=== PATIENT | male | born 1945 | race Caucasian/White ===

== ENCOUNTER 2020-06-24 06:09 | Inpatient (IN) | payer OTHER ==
[~2020-06-24] VITALS: Ht 175.3 cm; Wt 101.0 kg
[~2020-06-24 06:09] MED LIST: ASPI-543 PO
[2020-06-24] MEDS ORDERED: SODIUM CHLORIDE 0.9% 1,000 ML IV ONE ×2 (07:33)
[2020-06-24] MEDS ORDERED: cefTRIAXone 1GM/50ML D5W 50 ML IV ONE (07:45)
[2020-06-24] MEDS ORDERED: IPRATROPIUM BROM 0.5 MG/2.5ML INH SOL NEB ONE (07:45)
[2020-06-24] MEDS ORDERED: ALBUTEROL SULF 2.5 MG/0.5ML(0.5%) NEB SOLN NEB ONE (07:45)
[2020-06-24] MEDS ORDERED: methylPREDNISolone SOD SUCC 125 MG/2 ML VL IV ONE (07:45)
[2020-06-24] MEDS ORDERED: MAGNESIUM SULFATE 1GM/100ML 100 ML IV ONE (07:45)
[2020-06-24] MEDS ORDERED: DOXYCYCLINE 100MG/250ML 250 ML IV ONE (08:15)
[2020-06-24 09:00] LABS: Basophils # (auto) 0 10 ^3/uL (0-0.2); Basophils % (auto) 0.3 % (0.0-2.0); Eosinophils # (auto) 0 10 ^3/uL (0-0.8); Hematocrit 40.7 % (41.0-53.0); Hemoglobin 13.8 g/dL (13.5-17.5); Lymphocytes # (auto) 0.6 10 ^3/uL (0.4-5.4); Lymphocytes % (auto) 11.6 % (10.0-50.0); Mean Corpuscular Hemoglobin 31.9 pg (28.0-32.0); Mean Corpuscular Hgb Conc. 33.8 g/dL (32.0-36.0); Mean Corpuscular Volume 94.4 fL (80.0-100.0); Monocytes # (auto) 0.3 10 ^3/uL (0-1.3); Neutrophils # (auto) 4.4 10 ^3/uL (1.6-8.6); Neutrophils % (auto) 82.1 % (37.0-80.0); Nucleated Red Blood Cells % 0.3 %; Platelet Count (auto) 114 10^3/uL (140-450); Red Blood Cells 4.31 10^6/uL (4.5-5.90); Red Cell Distribution Width 13.9 % (11.8-14.3); White Blood Cell 5.3 10^3/uL (4.4-10.8)
[2020-06-24 09:07] LABS: INR 1.04 (0.9-1.15); Partial Thromboplastin Time 30.2 sec (23.0-31.2)
[2020-06-24 09:12] LABS: Chloride 102 mmol/L (98-107); Sodium 132 mmol/L (136-145)
[2020-06-24 09:24] LABS: Alanine Aminotransferase 28 U/L (16-61); Albumin 3.1 g/dL (3.4-5.0); Alkaline Phosphatase 93 U/L (45-117); Anion Gap 9 (5-15); Aspartate Aminotransferase 58 U/L (15-37); BUN/Creatinine Ratio 17.2; Blood Urea Nitrogen 15 mg/dL (7-18); Calcium 8.2 mg/dL (8.5-10.1); Carbon Dioxide 21 mmol/L (21-32); GFR African American 111 mL/min; GFR Non-African American 91 mL/min; Glucose 105 mg/dL (74-106); Total Protein 7.2 g/dL (6.4-8.2)
[2020-06-24 11:32] LABS: Urine Bacteria NONE SEEN /hpf (None Seen); Urine Blood Negative /uL (Negative); Urine Specific Gravity 1.018 (1.001-1.035); Urine WBC 3 /hpf (0 - 3)
[2020-06-24] MEDS ORDERED: MORPHINE SULF INJ 2 MG/ML SYRINGE 1ML IV PRN (13:00)
[2020-06-24] MEDS ORDERED: NITROGLYCERIN 0.4 MG SL TAB SL PRN (13:00)
[2020-06-24] MEDS ORDERED: SUCCINYLCHOLINE CHLORIDE 20 MG/ML 10ML VIAL IV ONE ×2 (13:49→14:00)
[2020-06-24] MEDS ORDERED: ETOMIDATE (2MG/ML) 20ML VIAL IV ONE ×2 (13:49→14:00)
[2020-06-24] MEDS ORDERED: MIDAZOLAM DRIP 50 mg/50mL 50 ML IV ONE (13:50)
[2020-06-24] MEDS: MIDAZOLAM DRIP 50 mg/50mL 50 ML IV SCH ×3 (14:08→22:40)
[2020-06-24] MEDS ORDERED: MIDAZOLAM HCL 5 MG/ML-1ML VIAL ONE (14:11)
[2020-06-24] MEDS ORDERED: PROPOFOL 100 ML IV ONE (14:17)
[2020-06-24] MEDS: PROPOFOL 100 ML IV SCH ×2 (14:19→21:30)
[2020-06-24] MEDS: fentaNYL Drip 2500mCg/250mlNS 250 ML IV SCH (14:25)
[2020-06-24] MEDS ORDERED: fentaNYL Drip 2500mCg/250mlNS 250 ML IV ONE (14:38)
[2020-06-24] MEDS: D5W/SOD CHL 0.45% 1,000 ML IV SCH ×2 (15:14→23:33)
[2020-06-24] MEDS: ALBUTEROL SULF HFA 90MCG INH 200DOSE IN SCH ×2 (15:16→18:00)
[2020-06-24] MEDS ORDERED: fentaNYL Drip 2500mCg/250mlNS 250 ML IV SCH (15:20)
[2020-06-24 18:32] VITALS: BP 89/56
[2020-06-24 19:32] VITALS: BP 89/56
[2020-06-24 19:50] VITALS: BP 89/56
[2020-06-24 22:32] VITALS: BP 103/56
[2020-06-25] VITALS (7 sets, daily range): BP systolic 97–128; BP diastolic 46–56
[2020-06-25] MEDS: ALBUTEROL SULF HFA 90MCG INH 200DOSE IN SCH (02:15)
[2020-06-25] MEDS ORDERED: ZINC SULFATE 220mg CAP or TAB PO SCH (10:00)
[2020-06-25] MEDS ORDERED: methylPREDNISolone SOD SUCC 125 MG/2 ML VL IV SCH (10:00)
[2020-06-25] MEDS ORDERED: AZITHROMYCIN 250 MG TAB PO SCH (10:00)
[2020-06-25] MEDS: cefTRIAXone 1GM/50ML D5W 50 ML IV SCH (10:10)
[2020-06-25] MEDS: PROPOFOL 100 ML IV SCH ×2 (10:12→14:58)
[2020-06-25] MEDS: MIDAZOLAM DRIP 50 mg/50mL 50 ML IV SCH (10:13)
[2020-06-25] MEDS ORDERED: NOREPINEPHRINE 8 MG/250ML KIT 250 ML IV ONE (11:21)
[2020-06-25] MEDS: NOREPINEPHRINE 8 MG/250ML KIT 250 ML IV SCH (12:03)
[2020-06-25] MEDS ORDERED: VANCOMYCIN PER PHARMACY 0 MG IV SCH (12:45)
[2020-06-25] MEDS: VANCOMYCIN 1GM/250ML 250 ML IV SCH (13:53)
[2020-06-25] MEDS ORDERED: SODIUM BICARBONATE 8.4 % INJ 50ML VIAL IV ONE (14:00)
[2020-06-25] MEDS: fentaNYL Drip 2500mCg/250mlNS 250 ML IV SCH (14:38)
[2020-06-25] MEDS: ENOXAPARIN SOD 120 MG/0.8 ML SYRINGE SC SCH ×2 (14:57→22:48)
[2020-06-25] MEDS: D5W/SOD CHL 0.45% 1,000 ML IV SCH ×2 (15:00→19:35)
[2020-06-26] VITALS (69 sets, daily range): BP systolic 86–156; BP diastolic 39–59
[2020-06-26] MEDS: VANCOMYCIN 1GM/250ML 250 ML IV SCH ×2 (02:23→14:14)
[2020-06-26] MEDS: PROPOFOL 100 ML IV SCH ×3 (03:50→17:26)
[2020-06-26] MEDS: MIDAZOLAM DRIP 50 mg/50mL 50 ML IV SCH ×3 (03:50→17:26)
[2020-06-26] MEDS: D5W/SOD CHL 0.45% 1,000 ML IV SCH ×2 (05:20→15:15)
[2020-06-26 05:32] LABS: Basophils # (auto) 0 10 ^3/uL (0-0.2); Basophils % (auto) 0.1 % (0.0-2.0); Eosinophils # (auto) 0 10 ^3/uL (0-0.8); Hematocrit 38.4 % (41.0-53.0); Hemoglobin 13.1 g/dL (13.5-17.5); Lymphocytes # (auto) 0.4 10 ^3/uL (0.4-5.4); Lymphocytes % (auto) 2.1 % (10.0-50.0); Mean Corpuscular Hemoglobin 32.5 pg (28.0-32.0); Mean Corpuscular Hgb Conc. 34.1 g/dL (32.0-36.0); Mean Corpuscular Volume 95.2 fL (80.0-100.0); Monocytes # (auto) 0.6 10 ^3/uL (0-1.3); Monocytes % (auto) 3.4 % (0.0-12.0); Neutrophils % (auto) 94.4 % (37.0-80.0); Nucleated Red Blood Cells % 0.4 %; Platelet Count (auto) 176 10^3/uL (140-450); Red Blood Cells 4.03 10^6/uL (4.5-5.90); Red Cell Distribution Width 13.7 % (11.8-14.3)
[2020-06-26 05:53] LABS: Albumin 2.5 g/dL (3.4-5.0); Calcium 7.8 mg/dL (8.5-10.1); Potassium 4.3 mmol/L (3.5-5.1)
[2020-06-26 06:05] LABS: BUN/Creatinine Ratio 25.5; Bilirubin, Total 0.6 mg/dL (0.2-1.0); CRP High Sensitivity 5.59 mg/dL (< 0.3); Total Protein 6.6 g/dL (6.4-8.2)
[2020-06-26] MEDS ORDERED: SODIUM BICARBONATE 8.4 % INJ 50ML VIAL IV ONE (09:15)
[2020-06-26] MEDS ORDERED: ENOXAPARIN SOD 40 MG/0.4 ML SYRINGE SC SCH (10:00)
[2020-06-26] MEDS ORDERED: methylPREDNISolone SOD SUCC 125 MG/2 ML VL ONE (11:26)
[2020-06-26] MEDS: cefTRIAXone 1GM/50ML D5W 50 ML IV SCH (11:34)
[2020-06-26] MEDS: AZITHROMYCIN 500MG/ 250ML 250 ML IV SCH (11:41)
[2020-06-26] MEDS: FUROSEMIDE 20 MG/2 ML VIAL IV SCH (12:03)
[2020-06-26] MEDS: methylPREDNISolone SOD SUCC 125 MG/2 ML VL IV SCH (12:04)
[2020-06-26] MEDS: ZINC SULFATE 220mg CAP or TAB PO SCH (12:05)
[2020-06-26] MEDS: ENOXAPARIN SOD 120 MG/0.8 ML SYRINGE SC SCH ×2 (12:05→22:00)
[2020-06-26] MEDS: NOREPINEPHRINE 8 MG/250ML KIT 250 ML IV SCH (12:42)
[2020-06-26] MEDS: fentaNYL Drip 2500mCg/250mlNS 250 ML IV SCH (14:38)
[2020-06-27] VITALS (101 sets, daily range): BP systolic 93–137; BP diastolic 33–54
[2020-06-27] MEDS: D5W/SOD CHL 0.45% 1,000 ML IV SCH ×2 (01:15→11:06)
[2020-06-27] MEDS: VANCOMYCIN 1GM/250ML 250 ML IV SCH ×2 (05:00→15:10)
[2020-06-27] MEDS: PROPOFOL 100 ML IV SCH ×3 (05:18→14:51)
[2020-06-27] MEDS: MIDAZOLAM DRIP 50 mg/50mL 50 ML IV SCH ×3 (06:36→15:40)
[2020-06-27] MEDS: NOREPINEPHRINE 8 MG/250ML KIT 250 ML IV SCH (08:38)
[2020-06-27] MEDS: cefTRIAXone 1GM/50ML D5W 50 ML IV SCH (08:56)
[2020-06-27] MEDS ORDERED: REMDESIVIR 200 MG in NS 210ml LOADING DOSE ADULT IV ONE (10:00)
[2020-06-27] MEDS: ZINC SULFATE 220mg CAP or TAB PO SCH (10:39)
[2020-06-27] MEDS: FUROSEMIDE 20 MG/2 ML VIAL IV SCH (10:39)
[2020-06-27] MEDS: methylPREDNISolone SOD SUCC 125 MG/2 ML VL IV SCH (10:39)
[2020-06-27] MEDS: ENOXAPARIN SOD 120 MG/0.8 ML SYRINGE SC SCH ×2 (10:40→21:56)
[2020-06-27] MEDS: AZITHROMYCIN 500MG/ 250ML 250 ML IV SCH (11:06)
[2020-06-27 11:17] LABS: Basophils # (auto) 0 10 ^3/uL (0-0.2); Basophils % (auto) 0.3 % (0.0-2.0); Eosinophils # (auto) 0 10 ^3/uL (0-0.8); Hematocrit 37.2 % (41.0-53.0); Hemoglobin 12.2 g/dL (13.5-17.5); Lymphocytes # (auto) 0.4 10 ^3/uL (0.4-5.4); Lymphocytes % (auto) 2.9 % (10.0-50.0); Mean Corpuscular Hemoglobin 31.5 pg (28.0-32.0); Mean Corpuscular Hgb Conc. 32.9 g/dL (32.0-36.0); Mean Corpuscular Volume 95.5 fL (80.0-100.0); Monocytes # (auto) 0.4 10 ^3/uL (0-1.3); Monocytes % (auto) 2.9 % (0.0-12.0); Neutrophils # (auto) 13.2 10 ^3/uL (1.6-8.6); Neutrophils % (auto) 93.9 % (37.0-80.0); Platelet Count (auto) 157 10^3/uL (140-450); Red Blood Cells 3.89 10^6/uL (4.5-5.90); Red Cell Distribution Width 13.6 % (11.8-14.3)
[2020-06-27 11:33] LABS: Albumin 2.2 g/dL (3.4-5.0); Calcium 7.5 mg/dL (8.5-10.1); Potassium 4.7 mmol/L (3.5-5.1)
[2020-06-27 11:36] LABS: BUN/Creatinine Ratio 33.6; Bilirubin, Total 0.5 mg/dL (0.2-1.0); Total Protein 6.2 g/dL (6.4-8.2)
[2020-06-27] MEDS: fentaNYL Drip 2500mCg/250mlNS 250 ML IV SCH (12:24)
[2020-06-27] MEDS: SODIUM CHLORIDE 0.9% 1,000 ML IV SCH ×2 (15:40→23:15)
[2020-06-27] MEDS ORDERED: DEXTROSE (50%) 50ML SYRG IV PRN (17:00)
[2020-06-27] MEDS: ACCU-CHEK COMFORT CURVE STRIP VI SCH (17:32)
[2020-06-27] MEDS: InsuLIN REG 1unit/0.01ml Soln (100units/ml) SC SCH (17:46)
[2020-06-28] VITALS (101 sets, daily range): BP systolic 98–123; BP diastolic 39–53
[2020-06-28] MEDS: VANCOMYCIN 1GM/250ML 250 ML IV SCH ×2 (01:00→12:20)
[2020-06-28 05:05] LABS: Hematocrit 33.7 % (41.0-53.0); Hemoglobin 11.4 g/dL (13.5-17.5); Mean Corpuscular Hemoglobin 32.3 pg (28.0-32.0); Mean Corpuscular Hgb Conc. 33.9 g/dL (32.0-36.0); Mean Corpuscular Volume 95.3 fL (80.0-100.0); Platelet Count (auto) 169 10^3/uL (140-450); Red Blood Cells 3.54 10^6/uL (4.5-5.90); Red Cell Distribution Width 13.6 % (11.8-14.3); White Blood Cell 13.6 10^3/uL (4.4-10.8)
[2020-06-28 05:09] LABS: Basophils % (manual) 0 (0.0-2.0); Blast Cells 0; Eosinophils % (manual) 0 (0-7); Metamyelocytes % 0; Myelocytes % 0; Promyelocytes % 0; Reactive Lymphocytes 0
[2020-06-28 05:20] LABS: BUN/Creatinine Ratio 41.7; Calcium 7.4 mg/dL (8.5-10.1); Potassium 4.8 mmol/L (3.5-5.1)
[2020-06-28 05:43] LABS: Band Neutrophils % (manual) 2; Lymphocytes % (manual) 3 (10.0-50.0); Monocytes % (manual) 3 (0-12)
[2020-06-28] MEDS: InsuLIN REG 1unit/0.01ml Soln (100units/ml) SC SCH ×4 (06:00→17:55)
[2020-06-28] MEDS: ACCU-CHEK COMFORT CURVE STRIP VI SCH ×4 (06:27→17:52)
[2020-06-28] MEDS: MIDAZOLAM DRIP 50 mg/50mL 50 ML IV SCH ×3 (06:28→20:00)
[2020-06-28] MEDS: SODIUM CHLORIDE 0.9% 1,000 ML IV SCH ×3 (07:47→23:15)
[2020-06-28] MEDS: cefTRIAXone 1GM/50ML D5W 50 ML IV SCH (08:20)
[2020-06-28] MEDS: REMDESIVIR 100mg in NS 230ml DAILYx4DAYS (NO VENT) IV SCH (09:21)
[2020-06-28] MEDS: FUROSEMIDE 20 MG/2 ML VIAL IV SCH (09:38)
[2020-06-28] MEDS: ENOXAPARIN SOD 120 MG/0.8 ML SYRINGE SC SCH ×2 (09:38→22:00)
[2020-06-28] MEDS: ZINC SULFATE 220mg CAP or TAB PO SCH ×2 (09:38→10:00)
[2020-06-28] MEDS: methylPREDNISolone SOD SUCC 125 MG/2 ML VL IV SCH (09:38)
[2020-06-28] MEDS: AZITHROMYCIN 500MG/ 250ML 250 ML IV SCH (10:38)
[2020-06-28] MEDS: NOREPINEPHRINE 8 MG/250ML KIT 250 ML IV SCH (13:57)
[2020-06-28] MEDS: fentaNYL Drip 2500mCg/250mlNS 250 ML IV SCH (13:57)
[2020-06-28] MEDS: PROPOFOL 100 ML IV SCH ×2 (13:58→20:00)
[2020-06-28] MEDS: FAMOTIDINE (10MG/ML) 2ML VL IV SCH (22:16)
[2020-06-29] VITALS (100 sets, daily range): BP systolic 111–156; BP diastolic 9–70
[2020-06-29] MEDS: ACCU-CHEK COMFORT CURVE STRIP VI SCH ×4 (00:02→17:59)
[2020-06-29] MEDS: InsuLIN REG 1unit/0.01ml Soln (100units/ml) SC SCH ×4 (00:04→17:42)
[2020-06-29] MEDS: SODIUM CHLORIDE 0.9% 1,000 ML IV SCH ×2 (01:33→15:15)
[2020-06-29] MEDS: PROPOFOL 100 ML IV SCH ×4 (01:35→22:42)
[2020-06-29 05:04] LABS: Basophils # (auto) 0 10 ^3/uL (0-0.2); Eosinophils # (auto) 0 10 ^3/uL (0-0.8); Hematocrit 34.3 % (41.0-53.0); Lymphocytes # (auto) 0.3 10 ^3/uL (0.4-5.4); Lymphocytes % (auto) 2.5 % (10.0-50.0); Monocytes # (auto) 0.5 10 ^3/uL (0-1.3)
[2020-06-29 05:07] LABS: Basophils % (auto) 0.1 % (0.0-2.0); Hemoglobin 11.4 g/dL (13.5-17.5); Mean Corpuscular Hemoglobin 31.8 pg (28.0-32.0); Mean Corpuscular Hgb Conc. 33.1 g/dL (32.0-36.0); Mean Corpuscular Volume 96.1 fL (80.0-100.0); Neutrophils # (auto) 11.8 10 ^3/uL (1.6-8.6); Neutrophils % (auto) 93.4 % (37.0-80.0); Platelet Count (auto) 171 10^3/uL (140-450); Red Blood Cells 3.57 10^6/uL (4.5-5.90); Red Cell Distribution Width 13.7 % (11.8-14.3); White Blood Cell 12.6 10^3/uL (4.4-10.8)
[2020-06-29] MEDS: MIDAZOLAM DRIP 50 mg/50mL 50 ML IV SCH ×3 (05:10→22:43)
[2020-06-29 05:20] LABS: Albumin 1.9 g/dL (3.4-5.0); BUN/Creatinine Ratio 53.5; Calcium 7.6 mg/dL (8.5-10.1); Potassium 4.9 mmol/L (3.5-5.1)
[2020-06-29 05:22] LABS: Bilirubin, Total 0.6 mg/dL (0.2-1.0); Total Protein 5.8 g/dL (6.4-8.2)
[2020-06-29] MEDS: VANCOMYCIN 1GM/250ML 250 ML IV SCH ×2 (05:30→16:46)
[2020-06-29] MEDS: cefTRIAXone 1GM/50ML D5W 50 ML IV SCH (09:20)
[2020-06-29] MEDS: REMDESIVIR 100mg in NS 230ml DAILYx4DAYS (NO VENT) IV SCH (10:21)
[2020-06-29] MEDS: FUROSEMIDE 20 MG/2 ML VIAL IV SCH (10:51)
[2020-06-29] MEDS: methylPREDNISolone SOD SUCC 125 MG/2 ML VL IV SCH (10:51)
[2020-06-29] MEDS: FAMOTIDINE (10MG/ML) 2ML VL IV SCH ×2 (10:52→22:41)
[2020-06-29] MEDS: ENOXAPARIN SOD 120 MG/0.8 ML SYRINGE SC SCH ×2 (10:52→22:41)
[2020-06-29] MEDS: ZINC SULFATE 220mg CAP or TAB PO SCH (10:52)
[2020-06-29] MEDS: AZITHROMYCIN 500MG/ 250ML 250 ML IV SCH (11:59)
[2020-06-29] MEDS: NOREPINEPHRINE 8 MG/250ML KIT 250 ML IV SCH (12:42)
[2020-06-29] MEDS: fentaNYL Drip 2500mCg/250mlNS 250 ML IV SCH (14:38)
[2020-06-29] MEDS ORDERED: FUROSEMIDE 20 MG/2 ML VIAL IV ONE (22:00)
[2020-06-30] VITALS (98 sets, daily range): BP systolic 118–167; BP diastolic 46–71
[2020-06-30] MEDS: ACCU-CHEK COMFORT CURVE STRIP VI SCH ×4 (00:07→18:06)
[2020-06-30] MEDS: InsuLIN REG 1unit/0.01ml Soln (100units/ml) SC SCH ×4 (00:08→18:07)
[2020-06-30] MEDS: fentaNYL Drip 2500mCg/250mlNS 250 ML IV SCH (00:09)
[2020-06-30] MEDS: PROPOFOL 100 ML IV SCH ×4 (05:10→23:31)
[2020-06-30] MEDS: VANCOMYCIN 1GM/250ML 250 ML IV SCH ×2 (05:14→18:24)
[2020-06-30] MEDS: REMDESIVIR 100mg in NS 230ml DAILYx4DAYS (NO VENT) IV SCH (11:27)
[2020-06-30] MEDS: FAMOTIDINE (10MG/ML) 2ML VL IV SCH ×2 (11:42→22:56)
[2020-06-30] MEDS: methylPREDNISolone SOD SUCC 125 MG/2 ML VL IV SCH ×2 (11:42→20:55)
[2020-06-30] MEDS: ZINC SULFATE 220mg CAP or TAB PO SCH (11:43)
[2020-06-30] MEDS: ENOXAPARIN SOD 120 MG/0.8 ML SYRINGE SC SCH ×2 (11:43→22:59)
[2020-06-30] MEDS: cefTRIAXone 1GM/50ML D5W 50 ML IV SCH (11:43)
[2020-06-30] MEDS: MIDAZOLAM DRIP 50 mg/50mL 50 ML IV SCH (12:30)
[2020-06-30] MEDS: FUROSEMIDE 20 MG/2 ML VIAL IV SCH (12:35)
[2020-06-30] MEDS: NOREPINEPHRINE 8 MG/250ML KIT 250 ML IV SCH (12:42)
[2020-06-30] MEDS: AZITHROMYCIN 500MG/ 250ML 250 ML IV SCH (14:40)
[2020-06-30] MEDS: Glucerna 1.2 Cal 1Liter BOTTLE GT SCH (16:10)
[2020-06-30] MEDS: METOCLOPRAMIDE HCL 5MG/ml INJ 2ml VIAL IV SCH (20:55)
[2020-07-01] VITALS (99 sets, daily range): BP systolic 115–187; BP diastolic 45–106
[2020-07-01] MEDS: ACCU-CHEK COMFORT CURVE STRIP VI SCH ×4 (00:05→17:49)
[2020-07-01] MEDS: InsuLIN REG 1unit/0.01ml Soln (100units/ml) SC SCH ×4 (00:05→18:32)
[2020-07-01] MEDS: PROPOFOL 100 ML IV SCH ×3 (05:00→21:00)
[2020-07-01] MEDS: VANCOMYCIN 1GM/250ML 250 ML IV SCH ×2 (05:37→17:00)
[2020-07-01] MEDS: METOCLOPRAMIDE HCL 5MG/ml INJ 2ml VIAL IV SCH ×4 (06:04→17:49)
[2020-07-01] MEDS: MIDAZOLAM DRIP 50 mg/50mL 50 ML IV SCH ×2 (06:30→21:00)
[2020-07-01] MEDS: fentaNYL Drip 2500mCg/250mlNS 250 ML IV SCH (06:35)
[2020-07-01 06:38] LABS: Hematocrit 35.7 % (41.0-53.0); Hemoglobin 11.9 g/dL (13.5-17.5); Mean Corpuscular Hemoglobin 31.8 pg (28.0-32.0); Mean Corpuscular Hgb Conc. 33.3 g/dL (32.0-36.0); Mean Corpuscular Volume 95.7 fL (80.0-100.0); Platelet Count (auto) 182 10^3/uL (140-450); Red Blood Cells 3.73 10^6/uL (4.5-5.90); Red Cell Distribution Width 13.1 % (11.8-14.3); White Blood Cell 12.5 10^3/uL (4.4-10.8)
[2020-07-01 06:57] LABS: Basophils % (manual) 0 (0.0-2.0); Blast Cells 0; Eosinophils % (manual) 0 (0-7); Lymphocytes % (manual) 0 (10.0-50.0); Promyelocytes % 0; Reactive Lymphocytes 0
[2020-07-01 07:07] LABS: Albumin 1.8 g/dL (3.4-5.0); BUN/Creatinine Ratio 51.8; Calcium 7.7 mg/dL (8.5-10.1)
[2020-07-01 07:13] LABS: Bilirubin, Total 1.3 mg/dL (0.2-1.0); Total Protein 5.7 g/dL (6.4-8.2)
[2020-07-01 07:46] LABS: Band Neutrophils % (manual) 6; Metamyelocytes % 1; Monocytes % (manual) 9 (0-12); Myelocytes % 1
[2020-07-01] MEDS: ENOXAPARIN SOD 120 MG/0.8 ML SYRINGE SC SCH ×2 (09:35→22:00)
[2020-07-01] MEDS: ZINC SULFATE 220mg CAP or TAB PO SCH (09:36)
[2020-07-01] MEDS: FUROSEMIDE 20 MG/2 ML VIAL IV SCH (09:36)
[2020-07-01] MEDS: FAMOTIDINE (10MG/ML) 2ML VL IV SCH ×2 (09:36→22:41)
[2020-07-01] MEDS: methylPREDNISolone SOD SUCC 125 MG/2 ML VL IV SCH (09:36)
[2020-07-01] MEDS: cefTRIAXone 1GM/50ML D5W 50 ML IV SCH (09:36)
[2020-07-01] MEDS: REMDESIVIR 100mg in NS 230ml DAILYx4DAYS (NO VENT) IV SCH (10:00)
[2020-07-01] MEDS: NOREPINEPHRINE 8 MG/250ML KIT 250 ML IV SCH (11:23)
[2020-07-01] MEDS: AZITHROMYCIN 500MG/ 250ML 250 ML IV SCH (12:00)
[2020-07-01] MEDS: Glucerna 1.2 Cal 1Liter BOTTLE GT SCH (14:00)
[2020-07-01] MEDS ORDERED: LABETALOL HCL 5 MG/ML 4ML SYRINGE IV PRN (15:15)
[2020-07-01] MEDS ORDERED: FUROSEMIDE 20 MG/2 ML VIAL ONE (17:39)
[2020-07-01] MEDS ORDERED: FUROSEMIDE 20 MG/2 ML VIAL IV ONE (17:45)
[2020-07-02] VITALS (98 sets, daily range): BP systolic 122–170; BP diastolic 52–76
[2020-07-02] MEDS: METOCLOPRAMIDE HCL 5MG/ml INJ 2ml VIAL IV SCH ×4 (00:42→18:07)
[2020-07-02] MEDS: InsuLIN REG 1unit/0.01ml Soln (100units/ml) SC SCH ×4 (00:45→17:56)
[2020-07-02] MEDS: PROPOFOL 100 ML IV SCH ×3 (01:00→21:30)
[2020-07-02] MEDS: VANCOMYCIN 1GM/250ML 250 ML IV SCH ×2 (05:15→17:08)
[2020-07-02] MEDS: ACCU-CHEK COMFORT CURVE STRIP VI SCH ×4 (06:00→17:35)
[2020-07-02] MEDS: cefTRIAXone 1GM/50ML D5W 50 ML IV SCH (08:47)
[2020-07-02] MEDS: ZINC SULFATE 220mg CAP or TAB PO SCH (10:25)
[2020-07-02] MEDS: FUROSEMIDE 40 MG/4 ML VIAL IV SCH (10:25)
[2020-07-02] MEDS: FAMOTIDINE (10MG/ML) 2ML VL IV SCH ×2 (10:25→21:00)
[2020-07-02] MEDS: ENOXAPARIN SOD 120 MG/0.8 ML SYRINGE SC SCH ×2 (10:25→21:00)
[2020-07-02] MEDS: methylPREDNISolone SOD SUCC 125 MG/2 ML VL IV SCH (10:25)
[2020-07-02] MEDS: NOREPINEPHRINE 8 MG/250ML KIT 250 ML IV SCH (12:42)
[2020-07-02] MEDS: fentaNYL Drip 2500mCg/250mlNS 250 ML IV SCH (15:12)
[2020-07-02] MEDS: ALBUTEROL SULF 2.5 MG/0.5ML(0.5%) NEB SOLN NEB SCH (22:54)
[2020-07-02] MEDS: ACETYLCYSTEINE 20%(200MG/ML) SOL 4ML NEB SCH (22:55)
[2020-07-03] VITALS (101 sets, daily range): BP systolic 116–161; BP diastolic 45–70
[2020-07-03] MEDS: PROPOFOL 100 ML IV SCH ×4 (03:30→20:30)
[2020-07-03] MEDS: VANCOMYCIN 1GM/250ML 250 ML IV SCH ×2 (05:00→16:37)
[2020-07-03] MEDS: MIDAZOLAM DRIP 50 mg/50mL 50 ML IV SCH ×2 (05:30→23:30)
[2020-07-03] MEDS: InsuLIN REG 1unit/0.01ml Soln (100units/ml) SC SCH ×4 (05:44→17:39)
[2020-07-03] MEDS: METOCLOPRAMIDE HCL 5MG/ml INJ 2ml VIAL IV SCH ×4 (05:44→17:39)
[2020-07-03] MEDS: ACCU-CHEK COMFORT CURVE STRIP VI SCH ×4 (05:45→17:38)
[2020-07-03 06:20] LABS: Hemoglobin 11.5 g/dL (13.5-17.5); Mean Corpuscular Hemoglobin 31.8 pg (28.0-32.0); Mean Corpuscular Hgb Conc. 32.8 g/dL (32.0-36.0); Mean Corpuscular Volume 97.1 fL (80.0-100.0); Platelet Count (auto) 157 10^3/uL (140-450); Red Blood Cells 3.61 10^6/uL (4.5-5.90); Red Cell Distribution Width 13.5 % (11.8-14.3); White Blood Cell 13.2 10^3/uL (4.4-10.8)
[2020-07-03 06:58] LABS: Albumin 1.8 g/dL (3.4-5.0); BUN/Creatinine Ratio 59.3; Bilirubin, Total 0.9 mg/dL (0.2-1.0); Calcium 7.7 mg/dL (8.5-10.1); Total Protein 5.6 g/dL (6.4-8.2)
[2020-07-03 07:04] LABS: Basophils % (manual) 0 (0.0-2.0); Blast Cells 0; Eosinophils % (manual) 0 (0-7); Myelocytes % 0; Promyelocytes % 0; Reactive Lymphocytes 0
[2020-07-03] MEDS: ALBUTEROL SULF 2.5 MG/0.5ML(0.5%) NEB SOLN NEB SCH ×3 (07:11→22:12)
[2020-07-03] MEDS: ACETYLCYSTEINE 20%(200MG/ML) SOL 4ML NEB SCH ×3 (07:11→22:12)
[2020-07-03 07:56] LABS: Band Neutrophils % (manual) 3; Lymphocytes % (manual) 2 (10.0-50.0); Metamyelocytes % 1; Monocytes % (manual) 2 (0-12)
[2020-07-03] MEDS: cefTRIAXone 1GM/50ML D5W 50 ML IV SCH (08:31)
[2020-07-03] MEDS: ENOXAPARIN SOD 120 MG/0.8 ML SYRINGE SC SCH ×2 (09:22→21:21)
[2020-07-03] MEDS: ZINC SULFATE 220mg CAP or TAB PO SCH (09:30)
[2020-07-03] MEDS: FAMOTIDINE (10MG/ML) 2ML VL IV SCH ×2 (09:30→21:21)
[2020-07-03] MEDS: FUROSEMIDE 40 MG/4 ML VIAL IV SCH (09:30)
[2020-07-03] MEDS: methylPREDNISolone SOD SUCC 125 MG/2 ML VL IV SCH (09:30)
[2020-07-03] MEDS: NOREPINEPHRINE 8 MG/250ML KIT 250 ML IV SCH (12:18)
[2020-07-03] MEDS ORDERED: BENZOCAINE (DENTAL) 20 % SPRAY 60ML MT ONE (14:17)
[2020-07-03] MEDS ORDERED: FLUMAZENIL 0.1 MG/ML INJ 10ML MDV IV ONE (14:17)
[2020-07-03] MEDS ORDERED: LIDOCAINE 2%HCL (LOCAL ANESTH.) INJ 20ML MDV ONE (14:17)
[2020-07-03] MEDS ORDERED: SODIUM CHLORIDE LOCK 0 ML ONE (14:17)
[2020-07-03] MEDS ORDERED: NALOXONE HCL 0.4 MG/ML VIAL ONE (14:17)
[2020-07-03] MEDS ORDERED: EPINEPHrine HCL 1 MG/1 ML AMP ONE (14:18)
[2020-07-03] MEDS ORDERED: diphenhdrAMINE HCL 50 MG/1 ML VL ONE (14:19)
[2020-07-03] MEDS ORDERED: GLYCOPYRROLATE 0.2 MG/ML 1ML VIAL ONE (14:19)
[2020-07-03] MEDS ORDERED: LIDOCAINE HCL 2% TOP JELLY 5ML TOP ONE (14:20)
[2020-07-03] MEDS ORDERED: LIDOCAINE 2% JELLY 11ml (GLYDO) ONE (14:20)
[2020-07-03] MEDS: fentaNYL Drip 2500mCg/250mlNS 250 ML IV SCH ×2 (14:38→21:21)
[2020-07-04] VITALS (97 sets, daily range): BP systolic 107–150; BP diastolic 44–71
[2020-07-04] MEDS: PROPOFOL 100 ML IV SCH ×6 (00:10→22:03)
[2020-07-04] MEDS: Glucerna 1.2 Cal 1Liter BOTTLE GT SCH (04:30)
[2020-07-04] MEDS: VANCOMYCIN 1GM/250ML 250 ML IV SCH ×2 (04:50→16:34)
[2020-07-04] MEDS: METOCLOPRAMIDE HCL 5MG/ml INJ 2ml VIAL IV SCH ×4 (05:51→18:25)
[2020-07-04] MEDS: InsuLIN REG 1unit/0.01ml Soln (100units/ml) SC SCH ×4 (05:51→18:24)
[2020-07-04] MEDS: ACCU-CHEK COMFORT CURVE STRIP VI SCH ×4 (05:52→18:25)
[2020-07-04] MEDS: ALBUTEROL SULF 2.5 MG/0.5ML(0.5%) NEB SOLN NEB SCH ×3 (06:35→22:27)
[2020-07-04] MEDS: ACETYLCYSTEINE 20%(200MG/ML) SOL 4ML NEB SCH ×3 (06:35→22:27)
[2020-07-04] MEDS: cefTRIAXone 1GM/50ML D5W 50 ML IV SCH (09:59)
[2020-07-04] MEDS: FUROSEMIDE 40 MG/4 ML VIAL IV SCH (10:00)
[2020-07-04] MEDS: FAMOTIDINE (10MG/ML) 2ML VL IV SCH ×2 (10:00→22:00)
[2020-07-04] MEDS: methylPREDNISolone SOD SUCC 125 MG/2 ML VL IV SCH (10:00)
[2020-07-04] MEDS: ENOXAPARIN SOD 120 MG/0.8 ML SYRINGE SC SCH ×2 (10:00→22:00)
[2020-07-04] MEDS: ZINC SULFATE 220mg CAP or TAB PO SCH (10:00)
[2020-07-04 10:07] LABS: Hematocrit 34.2 % (41.0-53.0); Hemoglobin 11.3 g/dL (13.5-17.5); Mean Corpuscular Hemoglobin 32.2 pg (28.0-32.0); Mean Corpuscular Hgb Conc. 33.1 g/dL (32.0-36.0); Mean Corpuscular Volume 97.4 fL (80.0-100.0); Platelet Count (auto) 131 10^3/uL (140-450); Red Blood Cells 3.51 10^6/uL (4.5-5.90); Red Cell Distribution Width 13.7 % (11.8-14.3); White Blood Cell 11.9 10^3/uL (4.4-10.8)
[2020-07-04 10:09] LABS: Basophils % (manual) 0 (0.0-2.0); Blast Cells 0; Promyelocytes % 0; Reactive Lymphocytes 0
[2020-07-04 10:31] LABS: Albumin 1.8 g/dL (3.4-5.0); Calcium 7.5 mg/dL (8.5-10.1); Potassium 4.5 mmol/L (3.5-5.1)
[2020-07-04 10:35] LABS: BUN/Creatinine Ratio 58.3; Total Protein 5.6 g/dL (6.4-8.2)
[2020-07-04 10:36] LABS: INR 1.04 (0.9-1.15); Partial Thromboplastin Time 31.8 sec (23.0-31.2)
[2020-07-04 11:30] LABS: Band Neutrophils % (manual) 7; Eosinophils % (manual) 1 (0-7); Lymphocytes % (manual) 5 (10.0-50.0); Metamyelocytes % 2; Monocytes % (manual) 2 (0-12); Myelocytes % 1
[2020-07-04] MEDS: MIDAZOLAM DRIP 50 mg/50mL 50 ML IV SCH ×2 (12:04→19:45)
[2020-07-04] MEDS: NOREPINEPHRINE 8 MG/250ML KIT 250 ML IV SCH (12:05)
[2020-07-04] MEDS: fentaNYL Drip 2500mCg/250mlNS 250 ML IV SCH (23:11)
[2020-07-05] VITALS (98 sets, daily range): BP systolic 107–167; BP diastolic 41–69
[2020-07-05] MEDS: PROPOFOL 100 ML IV SCH ×4 (01:43→20:54)
[2020-07-05] MEDS: InsuLIN REG 1unit/0.01ml Soln (100units/ml) SC SCH ×4 (04:56→18:25)
[2020-07-05] MEDS: METOCLOPRAMIDE HCL 5MG/ml INJ 2ml VIAL IV SCH ×4 (04:56→18:15)
[2020-07-05] MEDS: VANCOMYCIN 1GM/250ML 250 ML IV SCH ×2 (04:56→16:31)
[2020-07-05] MEDS: ACCU-CHEK COMFORT CURVE STRIP VI SCH ×4 (04:58→18:15)
[2020-07-05 05:13] LABS: Basophils # (auto) 0.1 10 ^3/uL (0-0.2); Basophils % (auto) 0.9 % (0.0-2.0); Eosinophils # (auto) 0 10 ^3/uL (0-0.8); Eosinophils % (auto) 0.2 % (0.0-7.0); Hematocrit 33.4 % (41.0-53.0); Hemoglobin 10.9 g/dL (13.5-17.5); Lymphocytes # (auto) 0.4 10 ^3/uL (0.4-5.4); Mean Corpuscular Hgb Conc. 32.8 g/dL (32.0-36.0); Mean Corpuscular Volume 97.8 fL (80.0-100.0); Monocytes # (auto) 0.7 10 ^3/uL (0-1.3); Monocytes % (auto) 5.4 % (0.0-12.0); Neutrophils # (auto) 11.9 10 ^3/uL (1.6-8.6); Neutrophils % (auto) 90.5 % (37.0-80.0); Platelet Count (auto) 125 10^3/uL (140-450); Red Blood Cells 3.41 10^6/uL (4.5-5.90); Red Cell Distribution Width 13.6 % (11.8-14.3); White Blood Cell 13.2 10^3/uL (4.4-10.8)
[2020-07-05 05:33] LABS: BUN/Creatinine Ratio 55.2; Calcium 7.5 mg/dL (8.5-10.1); Potassium 4.5 mmol/L (3.5-5.1)
[2020-07-05] MEDS: ACETYLCYSTEINE 20%(200MG/ML) SOL 4ML NEB SCH ×3 (07:59→22:34)
[2020-07-05] MEDS: ALBUTEROL SULF 2.5 MG/0.5ML(0.5%) NEB SOLN NEB SCH ×3 (07:59→22:33)
[2020-07-05] MEDS: cefTRIAXone 1GM/50ML D5W 50 ML IV SCH (09:22)
[2020-07-05] MEDS: ZINC SULFATE 220mg CAP or TAB PO SCH (10:45)
[2020-07-05] MEDS: FAMOTIDINE (10MG/ML) 2ML VL IV SCH ×2 (10:46→21:31)
[2020-07-05] MEDS: methylPREDNISolone SOD SUCC 125 MG/2 ML VL IV SCH (10:46)
[2020-07-05] MEDS: ENOXAPARIN SOD 120 MG/0.8 ML SYRINGE SC SCH ×2 (10:47→21:30)
[2020-07-05] MEDS: FUROSEMIDE 40 MG/4 ML VIAL IV SCH (10:47)
[2020-07-05] MEDS: NOREPINEPHRINE 8 MG/250ML KIT 250 ML IV SCH (12:42)
[2020-07-05] MEDS ORDERED: hydrALAZINE HCL 20 MG/ML VL IV PRN (15:00)
[2020-07-05] MEDS: Glucerna 1.2 Cal 1Liter BOTTLE GT SCH (18:15)
[2020-07-06] VITALS (101 sets, daily range): BP systolic 92–165; BP diastolic 38–85
[2020-07-06] MEDS: METOCLOPRAMIDE HCL 5MG/ml INJ 2ml VIAL IV SCH ×4 (00:18→17:51)
[2020-07-06] MEDS: ACCU-CHEK COMFORT CURVE STRIP VI SCH ×4 (00:19→17:52)
[2020-07-06] MEDS: PROPOFOL 100 ML IV SCH ×3 (02:02→08:58)
[2020-07-06] MEDS: fentaNYL Drip 2500mCg/250mlNS 250 ML IV SCH (02:04)
[2020-07-06] MEDS: ALBUTEROL SULF 2.5 MG/0.5ML(0.5%) NEB SOLN NEB SCH ×3 (05:46→22:32)
[2020-07-06] MEDS: ACETYLCYSTEINE 20%(200MG/ML) SOL 4ML NEB SCH ×3 (05:46→22:32)
[2020-07-06] MEDS: InsuLIN REG 1unit/0.01ml Soln (100units/ml) SC SCH ×4 (05:48→18:23)
[2020-07-06] MEDS: VANCOMYCIN 1GM/250ML 250 ML IV SCH ×2 (07:29→17:51)
[2020-07-06] MEDS: cefTRIAXone 1GM/50ML D5W 50 ML IV SCH (08:57)
[2020-07-06] MEDS: methylPREDNISolone SOD SUCC 125 MG/2 ML VL IV SCH (10:47)
[2020-07-06] MEDS: ZINC SULFATE 220mg CAP or TAB PO SCH (10:47)
[2020-07-06] MEDS: ENOXAPARIN SOD 120 MG/0.8 ML SYRINGE SC SCH ×2 (10:48→21:49)
[2020-07-06] MEDS: FAMOTIDINE (10MG/ML) 2ML VL IV SCH ×2 (10:48→21:48)
[2020-07-06] MEDS: FUROSEMIDE 40 MG/4 ML VIAL IV SCH (10:48)
[2020-07-06] MEDS: NOREPINEPHRINE 8 MG/250ML KIT 250 ML IV SCH (16:12)
[2020-07-06] MEDS: MIDAZOLAM DRIP 50 mg/50mL 50 ML IV SCH (16:12)
[2020-07-07] VITALS (97 sets, daily range): BP systolic 122–167; BP diastolic 46–80
[2020-07-07] MEDS: ACCU-CHEK COMFORT CURVE STRIP VI SCH ×4 (00:27→18:00)
[2020-07-07] MEDS: PROPOFOL 100 ML IV SCH ×2 (00:30→03:36)
[2020-07-07] MEDS: fentaNYL Drip 2500mCg/250mlNS 250 ML IV SCH (03:35)
[2020-07-07 04:29] LABS: Basophils # (auto) 0.2 10 ^3/uL (0-0.2); Basophils % (auto) 0.8 % (0.0-2.0); Eosinophils # (auto) 0 10 ^3/uL (0-0.8); Eosinophils % (auto) 0.1 % (0.0-7.0); Hematocrit 33.2 % (41.0-53.0); Hemoglobin 11.2 g/dL (13.5-17.5); Lymphocytes # (auto) 0.6 10 ^3/uL (0.4-5.4); Lymphocytes % (auto) 3.1 % (10.0-50.0); Mean Corpuscular Hemoglobin 32.4 pg (28.0-32.0); Mean Corpuscular Hgb Conc. 33.7 g/dL (32.0-36.0); Monocytes # (auto) 1.4 10 ^3/uL (0-1.3); Monocytes % (auto) 7.6 % (0.0-12.0); Neutrophils # (auto) 16.7 10 ^3/uL (1.6-8.6); Neutrophils % (auto) 88.4 % (37.0-80.0); Platelet Count (auto) 106 10^3/uL (140-450); Red Blood Cells 3.45 10^6/uL (4.5-5.90); Red Cell Distribution Width 13.5 % (11.8-14.3); White Blood Cell 18.9 10^3/uL (4.4-10.8)
[2020-07-07 04:41] LABS: Potassium 4.1 mmol/L (3.5-5.1)
[2020-07-07 04:49] LABS: Albumin 1.9 g/dL (3.4-5.0); BUN/Creatinine Ratio 52.1; Bilirubin, Total 0.8 mg/dL (0.2-1.0); Calcium 7.5 mg/dL (8.5-10.1); Total Protein 5.8 g/dL (6.4-8.2)
[2020-07-07] MEDS: VANCOMYCIN 1GM/250ML 250 ML IV SCH ×2 (05:19→17:00)
[2020-07-07] MEDS: METOCLOPRAMIDE HCL 5MG/ml INJ 2ml VIAL IV SCH ×4 (05:40→18:00)
[2020-07-07] MEDS: InsuLIN REG 1unit/0.01ml Soln (100units/ml) SC SCH ×4 (05:40→18:00)
[2020-07-07] MEDS: ALBUTEROL SULF 2.5 MG/0.5ML(0.5%) NEB SOLN NEB SCH ×3 (06:38→22:32)
[2020-07-07] MEDS: ACETYLCYSTEINE 20%(200MG/ML) SOL 4ML NEB SCH ×3 (06:38→22:32)
[2020-07-07] MEDS: FAMOTIDINE (10MG/ML) 2ML VL IV SCH ×2 (08:37→21:46)
[2020-07-07] MEDS: ENOXAPARIN SOD 120 MG/0.8 ML SYRINGE SC SCH ×2 (08:37→21:47)
[2020-07-07] MEDS: FUROSEMIDE 40 MG/4 ML VIAL IV SCH (08:37)
[2020-07-07] MEDS: methylPREDNISolone SOD SUCC 125 MG/2 ML VL IV SCH (08:37)
[2020-07-07] MEDS: ZINC SULFATE 220mg CAP or TAB PO SCH (08:42)
[2020-07-07] MEDS: cefTRIAXone 1GM/50ML D5W 50 ML IV SCH (08:42)
[2020-07-07] MEDS: NOREPINEPHRINE 8 MG/250ML KIT 250 ML IV SCH (12:42)
[2020-07-07] MEDS: MIDAZOLAM DRIP 50 mg/50mL 50 ML IV SCH (15:18)
[2020-07-07] MEDS: PIPERACILLIN-TAZOB 3.375GM 100 ML IV SCH (19:43)
[2020-07-08] VITALS (74 sets, daily range): BP systolic 122–169; BP diastolic 55–97
[2020-07-08] MEDS: PIPERACILLIN-TAZOB 3.375GM 100 ML IV SCH ×4 (00:20→17:53)
[2020-07-08] MEDS: METOCLOPRAMIDE HCL 5MG/ml INJ 2ml VIAL IV SCH ×4 (00:20→17:52)
[2020-07-08] MEDS: ACCU-CHEK COMFORT CURVE STRIP VI SCH ×4 (00:21→17:53)
[2020-07-08] MEDS: VANCOMYCIN 1GM/250ML 250 ML IV SCH ×2 (05:23→17:30)
[2020-07-08] MEDS: InsuLIN REG 1unit/0.01ml Soln (100units/ml) SC SCH ×4 (05:37→18:14)
[2020-07-08] MEDS: ACETYLCYSTEINE 20%(200MG/ML) SOL 4ML NEB SCH ×3 (07:36→22:41)
[2020-07-08] MEDS: ALBUTEROL SULF 2.5 MG/0.5ML(0.5%) NEB SOLN NEB SCH ×3 (07:36→22:40)
[2020-07-08] MEDS: ZINC SULFATE 220mg CAP or TAB PO SCH (08:36)
[2020-07-08] MEDS: FAMOTIDINE (10MG/ML) 2ML VL IV SCH ×2 (09:21→21:10)
[2020-07-08] MEDS: methylPREDNISolone SOD SUCC 125 MG/2 ML VL IV SCH (09:21)
[2020-07-08] MEDS: FUROSEMIDE 40 MG/4 ML VIAL IV SCH (09:22)
[2020-07-08] MEDS: ENOXAPARIN SOD 120 MG/0.8 ML SYRINGE SC SCH ×2 (09:22→21:15)
[2020-07-08] MEDS: fentaNYL Drip 2500mCg/250mlNS 250 ML IV SCH (11:29)
[2020-07-08] MEDS: MIDAZOLAM DRIP 50 mg/50mL 50 ML IV SCH (11:29)
[2020-07-08] MEDS: NOREPINEPHRINE 8 MG/250ML KIT 250 ML IV SCH (11:29)
[2020-07-08] MEDS: PROPOFOL 100 ML IV SCH (11:29)
[2020-07-09] VITALS (63 sets, daily range): BP systolic 98–167; BP diastolic 58–84
[2020-07-09] MEDS: METOCLOPRAMIDE HCL 5MG/ml INJ 2ml VIAL IV SCH ×5 (00:34→23:02)
[2020-07-09] MEDS: PIPERACILLIN-TAZOB 3.375GM 100 ML IV SCH ×2 (00:34→06:25)
[2020-07-09 04:22] LABS: Basophils # (auto) 0.1 10 ^3/uL (0-0.2); Basophils % (auto) 0.5 % (0.0-2.0); Eosinophils # (auto) 0 10 ^3/uL (0-0.8); Eosinophils % (auto) 0.1 % (0.0-7.0); Hematocrit 35.8 % (41.0-53.0); Hemoglobin 11.9 g/dL (13.5-17.5); Lymphocytes # (auto) 0.6 10 ^3/uL (0.4-5.4); Mean Corpuscular Hemoglobin 31.9 pg (28.0-32.0); Mean Corpuscular Hgb Conc. 33.2 g/dL (32.0-36.0); Mean Corpuscular Volume 96.2 fL (80.0-100.0); Monocytes # (auto) 1.2 10 ^3/uL (0-1.3); Monocytes % (auto) 5.5 % (0.0-12.0); Neutrophils # (auto) 19.2 10 ^3/uL (1.6-8.6); Neutrophils % (auto) 90.9 % (37.0-80.0); Platelet Count (auto) 115 10^3/uL (140-450); Red Blood Cells 3.72 10^6/uL (4.5-5.90); Red Cell Distribution Width 13.4 % (11.8-14.3); White Blood Cell 21.1 10^3/uL (4.4-10.8)
[2020-07-09 04:39] LABS: BUN/Creatinine Ratio 33.3; Calcium 7.8 mg/dL (8.5-10.1); Potassium 3.3 mmol/L (3.5-5.1)
[2020-07-09] MEDS: VANCOMYCIN 1GM/250ML 250 ML IV SCH ×2 (05:32→16:59)
[2020-07-09] MEDS: ACCU-CHEK COMFORT CURVE STRIP VI SCH ×5 (05:56→23:03)
[2020-07-09] MEDS: InsuLIN REG 1unit/0.01ml Soln (100units/ml) SC SCH ×4 (05:56→18:18)
[2020-07-09] MEDS: ACETYLCYSTEINE 20%(200MG/ML) SOL 4ML NEB SCH ×3 (06:50→22:12)
[2020-07-09] MEDS: ALBUTEROL SULF 2.5 MG/0.5ML(0.5%) NEB SOLN NEB SCH ×3 (06:50→22:12)
[2020-07-09] MEDS: methylPREDNISolone SOD SUCC 125 MG/2 ML VL IV SCH (09:30)
[2020-07-09] MEDS: FAMOTIDINE (10MG/ML) 2ML VL IV SCH ×2 (09:30→21:32)
[2020-07-09] MEDS: FUROSEMIDE 40 MG/4 ML VIAL IV SCH (09:30)
[2020-07-09] MEDS: ZINC SULFATE 220mg CAP or TAB PO SCH (09:31)
[2020-07-09] MEDS: ENOXAPARIN SOD 120 MG/0.8 ML SYRINGE SC SCH ×2 (09:31→21:32)
[2020-07-09] MEDS ORDERED: levoFLOXacin 750MG 150 ML IV ONE (10:30)
[2020-07-09] MEDS: ACETAMINOPHEN 650 mg PER 20.3 mL UD GT PRN (12:21)
[2020-07-09] MEDS: NOREPINEPHRINE 8 MG/250ML KIT 250 ML IV SCH (12:41)
[2020-07-09] MEDS: fentaNYL Drip 2500mCg/250mlNS 250 ML IV SCH (14:38)
[2020-07-09] MEDS: MEROPENEM 1GM IVPB 100 ML IV SCH ×2 (14:49→21:31)
[2020-07-09] MEDS: PROPOFOL 100 ML IV SCH (15:18)
[2020-07-09] MEDS: MIDAZOLAM DRIP 50 mg/50mL 50 ML IV SCH (15:18)
[2020-07-09] MEDS: POTASSIUM CHL 20MEQ/100ML 100 ML IV SCH ×2 (17:29→18:45)
[2020-07-10] VITALS (89 sets, daily range): BP systolic 124–186; BP diastolic 50–87
[2020-07-10] MEDS: ACETAMINOPHEN 650 mg PER 20.3 mL UD GT PRN (03:11)
[2020-07-10 04:44] LABS: BUN/Creatinine Ratio 35.9; Calcium 8.2 mg/dL (8.5-10.1); Potassium 3.5 mmol/L (3.5-5.1)
[2020-07-10] MEDS: VANCOMYCIN 1GM/250ML 250 ML IV SCH ×2 (05:06→17:00)
[2020-07-10] MEDS: METOCLOPRAMIDE HCL 5MG/ml INJ 2ml VIAL IV SCH ×3 (06:00→18:12)
[2020-07-10] MEDS: InsuLIN REG 1unit/0.01ml Soln (100units/ml) SC SCH ×3 (06:00→18:15)
[2020-07-10] MEDS: MEROPENEM 1GM IVPB 100 ML IV SCH ×3 (06:10→22:00)
[2020-07-10] MEDS: ACCU-CHEK COMFORT CURVE STRIP VI SCH ×3 (06:12→18:12)
[2020-07-10] MEDS: ACETYLCYSTEINE 20%(200MG/ML) SOL 4ML NEB SCH ×3 (06:50→22:32)
[2020-07-10 09:44] LABS: Basophils # (auto) 0.1 10 ^3/uL (0-0.2); Basophils % (auto) 0.4 % (0.0-2.0); Eosinophils # (auto) 0 10 ^3/uL (0-0.8); Eosinophils % (auto) 0.1 % (0.0-7.0); Hematocrit 38.2 % (41.0-53.0); Hemoglobin 12.4 g/dL (13.5-17.5); Lymphocytes # (auto) 0.7 10 ^3/uL (0.4-5.4); Mean Corpuscular Hgb Conc. 32.5 g/dL (32.0-36.0); Mean Corpuscular Volume 98.5 fL (80.0-100.0); Monocytes # (auto) 0.8 10 ^3/uL (0-1.3); Monocytes % (auto) 5.4 % (0.0-12.0); Neutrophils # (auto) 13.3 10 ^3/uL (1.6-8.6); Neutrophils % (auto) 89.1 % (37.0-80.0); Nucleated Red Blood Cells % 0.1 %; Platelet Count (auto) 137 10^3/uL (140-450); Red Blood Cells 3.88 10^6/uL (4.5-5.90); Red Cell Distribution Width 13.8 % (11.8-14.3); White Blood Cell 14.9 10^3/uL (4.4-10.8)
[2020-07-10] MEDS: ALBUTEROL SULF 2.5 MG/0.5ML(0.5%) NEB SOLN NEB SCH ×3 (09:44→22:31)
[2020-07-10] MEDS ORDERED: levoFLOXacin 750MG 150 ML IV SCH (10:00)
[2020-07-10] MEDS: methylPREDNISolone SOD SUCC 125 MG/2 ML VL IV SCH (10:05)
[2020-07-10] MEDS: ENOXAPARIN SOD 120 MG/0.8 ML SYRINGE SC SCH ×2 (10:05→22:00)
[2020-07-10] MEDS: FUROSEMIDE 40 MG/4 ML VIAL IV SCH (10:05)
[2020-07-10] MEDS: FAMOTIDINE (10MG/ML) 2ML VL IV SCH ×2 (10:05→22:00)
[2020-07-10] MEDS: ZINC SULFATE 220mg CAP or TAB PO SCH (10:06)
[2020-07-10] MEDS ORDERED: EPINEPHrine HCL 0.5 ML NEB ONE (12:18)
[2020-07-10] MEDS: NOREPINEPHRINE 8 MG/250ML KIT 250 ML IV SCH (12:42)
[2020-07-10] MEDS: fentaNYL Drip 2500mCg/250mlNS 250 ML IV SCH (14:38)
[2020-07-10] MEDS: PROPOFOL 100 ML IV SCH (15:18)
[2020-07-10] MEDS: MIDAZOLAM DRIP 50 mg/50mL 50 ML IV SCH (15:18)
[2020-07-11] VITALS (51 sets, daily range): BP systolic 111–156; BP diastolic 48–85
[2020-07-11] MEDS: VANCOMYCIN 1GM/250ML 250 ML IV SCH ×2 (04:57→17:46)
[2020-07-11 05:31] LABS: Basophils # (auto) 0.1 10 ^3/uL (0-0.2); Basophils % (auto) 0.4 % (0.0-2.0); Eosinophils # (auto) 0 10 ^3/uL (0-0.8); Hematocrit 33.7 % (41.0-53.0); Hemoglobin 11.3 g/dL (13.5-17.5); Lymphocytes # (auto) 0.4 10 ^3/uL (0.4-5.4); Lymphocytes % (auto) 3.1 % (10.0-50.0); Mean Corpuscular Hemoglobin 32.5 pg (28.0-32.0); Mean Corpuscular Hgb Conc. 33.4 g/dL (32.0-36.0); Mean Corpuscular Volume 97.1 fL (80.0-100.0); Monocytes # (auto) 0.4 10 ^3/uL (0-1.3); Monocytes % (auto) 2.6 % (0.0-12.0); Neutrophils # (auto) 13.1 10 ^3/uL (1.6-8.6); Neutrophils % (auto) 93.9 % (37.0-80.0); Platelet Count (auto) 134 10^3/uL (140-450); Red Blood Cells 3.47 10^6/uL (4.5-5.90); White Blood Cell 13.9 10^3/uL (4.4-10.8)
[2020-07-11] MEDS: InsuLIN REG 1unit/0.01ml Soln (100units/ml) SC SCH ×4 (05:34→18:04)
[2020-07-11] MEDS: ACCU-CHEK COMFORT CURVE STRIP VI SCH ×5 (05:34→23:59)
[2020-07-11] MEDS: METOCLOPRAMIDE HCL 5MG/ml INJ 2ml VIAL IV SCH ×5 (05:34→23:59)
[2020-07-11] MEDS: MEROPENEM 1GM IVPB 100 ML IV SCH ×3 (06:00→22:09)
[2020-07-11 06:02] LABS: Albumin 2.1 g/dL (3.4-5.0); Potassium 3.5 mmol/L (3.5-5.1)
[2020-07-11 06:06] LABS: BUN/Creatinine Ratio 36.4; Bilirubin, Total 1.2 mg/dL (0.2-1.0); Total Protein 6.2 g/dL (6.4-8.2)
[2020-07-11] MEDS: ACETYLCYSTEINE 20%(200MG/ML) SOL 4ML NEB SCH ×2 (06:12→20:23)
[2020-07-11] MEDS: ALBUTEROL SULF 2.5 MG/0.5ML(0.5%) NEB SOLN NEB SCH ×2 (06:12→20:24)
[2020-07-11] MEDS: methylPREDNISolone SOD SUCC 125 MG/2 ML VL IV SCH ×2 (09:15→09:58)
[2020-07-11] MEDS: FUROSEMIDE 40 MG/4 ML VIAL IV SCH (09:58)
[2020-07-11] MEDS: ZINC SULFATE 220mg CAP or TAB PO SCH (09:58)
[2020-07-11] MEDS: ENOXAPARIN SOD 120 MG/0.8 ML SYRINGE SC SCH ×2 (09:58→22:10)
[2020-07-11] MEDS: FAMOTIDINE (10MG/ML) 2ML VL IV SCH ×2 (09:58→22:10)
[2020-07-11] MEDS: NOREPINEPHRINE 8 MG/250ML KIT 250 ML IV SCH (12:42)
[2020-07-12] MEDS: InsuLIN REG 1unit/0.01ml Soln (100units/ml) SC SCH ×4 (00:02→18:07)
[2020-07-12] MEDS ORDERED: LABETALOL HCL 5 MG/ML 4ML SYRINGE IV ONE (00:30)
[2020-07-12] MEDS: VANCOMYCIN 1GM/250ML 250 ML IV SCH ×2 (04:28→18:06)
[2020-07-12 05:00] VITALS: BP 131/72
[2020-07-12] MEDS: ACCU-CHEK COMFORT CURVE STRIP VI SCH ×3 (05:34→18:06)
[2020-07-12] MEDS: MEROPENEM 1GM IVPB 100 ML IV SCH ×3 (05:35→21:36)
[2020-07-12] MEDS: METOCLOPRAMIDE HCL 5MG/ml INJ 2ml VIAL IV SCH ×3 (05:35→18:06)
[2020-07-12] MEDS: ALBUTEROL SULF 2.5 MG/0.5ML(0.5%) NEB SOLN NEB SCH ×2 (06:35→21:34)
[2020-07-12] MEDS: ACETYLCYSTEINE 20%(200MG/ML) SOL 4ML NEB SCH ×3 (06:35→21:34)
[2020-07-12 08:00] VITALS: BP 127/66
[2020-07-12] MEDS: ZINC SULFATE 220mg CAP or TAB PO SCH (09:31)
[2020-07-12] MEDS: ENOXAPARIN SOD 120 MG/0.8 ML SYRINGE SC SCH ×2 (09:44→21:37)
[2020-07-12] MEDS: FUROSEMIDE 40 MG/4 ML VIAL IV SCH (09:45)
[2020-07-12] MEDS: methylPREDNISolone SOD SUCC 125 MG/2 ML VL IV SCH (09:45)
[2020-07-12] MEDS: FAMOTIDINE (10MG/ML) 2ML VL IV SCH ×2 (09:45→21:37)
[2020-07-12] MEDS: ACETAMINOPHEN 650 mg PER 20.3 mL UD GT PRN (10:15)
[2020-07-12 12:00] VITALS: BP 148/64
[2020-07-12] MEDS ORDERED: ALBUTEROL SULF HFA 90MCG INH 200DOSE IN SCH (14:00)
[2020-07-12 17:00] VITALS: BP 132/54
[2020-07-12 22:00] VITALS: BP 141/68
[2020-07-13] MEDS: METOCLOPRAMIDE HCL 5MG/ml INJ 2ml VIAL IV SCH ×4 (00:10→18:26)
[2020-07-13] MEDS: ACCU-CHEK COMFORT CURVE STRIP VI SCH ×4 (00:11→18:22)
[2020-07-13 05:00] VITALS: BP 111/57
[2020-07-13 05:18] LABS: Basophils # (auto) 0 10 ^3/uL (0-0.2); Basophils % (auto) 0.1 % (0.0-2.0); Eosinophils # (auto) 0 10 ^3/uL (0-0.8); Eosinophils % (auto) 0.1 % (0.0-7.0); Hematocrit 36.6 % (41.0-53.0); Hemoglobin 12.2 g/dL (13.5-17.5); Lymphocytes # (auto) 0.3 10 ^3/uL (0.4-5.4); Lymphocytes % (auto) 2.6 % (10.0-50.0); Mean Corpuscular Hemoglobin 32.1 pg (28.0-32.0); Mean Corpuscular Hgb Conc. 33.2 g/dL (32.0-36.0); Mean Corpuscular Volume 96.6 fL (80.0-100.0); Monocytes # (auto) 0.2 10 ^3/uL (0-1.3); Monocytes % (auto) 1.5 % (0.0-12.0); Neutrophils # (auto) 12.1 10 ^3/uL (1.6-8.6); Neutrophils % (auto) 95.7 % (37.0-80.0); Platelet Count (auto) 84 10^3/uL (140-450); Red Blood Cells 3.79 10^6/uL (4.5-5.90); Red Cell Distribution Width 14.3 % (11.8-14.3); White Blood Cell 12.6 10^3/uL (4.4-10.8)
[2020-07-13 05:34] LABS: Albumin 2.1 g/dL (3.4-5.0); Calcium 7.9 mg/dL (8.5-10.1)
[2020-07-13 05:43] LABS: BUN/Creatinine Ratio 40.2; Bilirubin, Total 1.6 mg/dL (0.2-1.0); CRP High Sensitivity 8.48 mg/dL (< 0.3); Total Protein 6.3 g/dL (6.4-8.2)
[2020-07-13 05:46] LABS: Potassium 2.9 mmol/L (3.5-5.1)
[2020-07-13] MEDS: MEROPENEM 1GM IVPB 100 ML IV SCH ×3 (06:00→22:13)
[2020-07-13] MEDS: InsuLIN REG 1unit/0.01ml Soln (100units/ml) SC SCH ×4 (06:00→18:27)
[2020-07-13] MEDS: VANCOMYCIN 1GM/250ML 250 ML IV SCH ×2 (06:00→18:26)
[2020-07-13] MEDS: ACETYLCYSTEINE 20%(200MG/ML) SOL 4ML NEB SCH ×3 (07:04→22:23)
[2020-07-13] MEDS: ALBUTEROL SULF 2.5 MG/0.5ML(0.5%) NEB SOLN NEB SCH ×3 (07:04→22:23)
[2020-07-13 09:00] VITALS: BP 109/65
[2020-07-13] MEDS: FUROSEMIDE 40 MG/4 ML VIAL IV SCH (09:23)
[2020-07-13] MEDS: ENOXAPARIN SOD 120 MG/0.8 ML SYRINGE SC SCH ×3 (09:24→22:14)
[2020-07-13] MEDS: FAMOTIDINE (10MG/ML) 2ML VL IV SCH ×2 (09:24→22:13)
[2020-07-13] MEDS: ZINC SULFATE 220mg CAP or TAB PO SCH (09:24)
[2020-07-13] MEDS: methylPREDNISolone SOD SUCC 125 MG/2 ML VL IV SCH (09:24)
[2020-07-13] MEDS: POTASSIUM CHL 20MEQ/100ML 100 ML IV SCH ×3 (11:26→14:15)
[2020-07-13 13:00] VITALS: BP 149/79
[2020-07-13 16:20] VITALS: BP 149/79
[2020-07-13 16:40] VITALS: BP 125/87
[2020-07-13 19:40] LABS: Urine Bacteria MOD /hpf (None Seen); Urine Blood 2+ /uL (Negative); Urine Mucus FEW (None Seen); Urine Specific Gravity 1.028 (1.001-1.035); Urine WBC 16 /hpf (0 - 3)
[2020-07-13 22:00] VITALS: BP 120/71
[2020-07-14] MEDS: ACCU-CHEK COMFORT CURVE STRIP VI SCH ×4 (00:28→17:40)
[2020-07-14] MEDS: METOCLOPRAMIDE HCL 5MG/ml INJ 2ml VIAL IV SCH ×4 (00:28→17:40)
[2020-07-14 05:00] VITALS: BP 133/111
[2020-07-14] MEDS: InsuLIN REG 1unit/0.01ml Soln (100units/ml) SC SCH ×4 (06:00→17:48)
[2020-07-14] MEDS: MEROPENEM 1GM IVPB 100 ML IV SCH ×3 (06:07→21:40)
[2020-07-14] MEDS: VANCOMYCIN 1GM/250ML 250 ML IV SCH ×2 (06:07→17:40)
[2020-07-14] MEDS: ACETYLCYSTEINE 20%(200MG/ML) SOL 4ML NEB SCH ×3 (07:22→22:18)
[2020-07-14] MEDS: ALBUTEROL SULF 2.5 MG/0.5ML(0.5%) NEB SOLN NEB SCH ×3 (07:22→22:18)
[2020-07-14 09:00] VITALS: BP 117/51
[2020-07-14] MEDS: FUROSEMIDE 40 MG/4 ML VIAL IV SCH (09:59)
[2020-07-14] MEDS: FAMOTIDINE (10MG/ML) 2ML VL IV SCH ×2 (09:59→21:40)
[2020-07-14] MEDS: methylPREDNISolone SOD SUCC 125 MG/2 ML VL IV SCH (10:00)
[2020-07-14] MEDS: ZINC SULFATE 220mg CAP or TAB PO SCH (10:01)
[2020-07-14] MEDS: ENOXAPARIN SOD 120 MG/0.8 ML SYRINGE SC SCH ×2 (10:01→21:40)
[2020-07-14 13:00] VITALS: BP 134/68
[2020-07-14 16:56] VITALS: BP 136/63
[2020-07-14 22:00] VITALS: BP 139/67
[2020-07-15] MEDS: ACCU-CHEK COMFORT CURVE STRIP VI SCH ×5 (00:01→23:36)
[2020-07-15] MEDS: METOCLOPRAMIDE HCL 5MG/ml INJ 2ml VIAL IV SCH ×5 (00:02→23:36)
[2020-07-15] MEDS: VANCOMYCIN 1GM/250ML 250 ML IV SCH ×2 (04:52→17:12)
[2020-07-15 05:00] VITALS: BP 154/80
[2020-07-15] MEDS: MEROPENEM 1GM IVPB 100 ML IV SCH ×3 (06:03→21:37)
[2020-07-15] MEDS: InsuLIN REG 1unit/0.01ml Soln (100units/ml) SC SCH ×5 (06:19→23:36)
[2020-07-15 06:27] LABS: Basophils # (auto) 0 10 ^3/uL (0-0.2); Basophils % (auto) 0.2 % (0.0-2.0); Eosinophils # (auto) 0 10 ^3/uL (0-0.8); Eosinophils % (auto) 0.1 % (0.0-7.0); Hematocrit 36.9 % (41.0-53.0); Hemoglobin 11.9 g/dL (13.5-17.5); Lymphocytes # (auto) 0.7 10 ^3/uL (0.4-5.4); Lymphocytes % (auto) 9.2 % (10.0-50.0); Mean Corpuscular Hemoglobin 31.7 pg (28.0-32.0); Mean Corpuscular Hgb Conc. 32.3 g/dL (32.0-36.0); Monocytes # (auto) 0.2 10 ^3/uL (0-1.3); Monocytes % (auto) 3.2 % (0.0-12.0); Neutrophils # (auto) 6.5 10 ^3/uL (1.6-8.6); Neutrophils % (auto) 87.3 % (37.0-80.0); Nucleated Red Blood Cells % 0.3 %; Platelet Count (auto) 89 10^3/uL (140-450); Red Blood Cells 3.76 10^6/uL (4.5-5.90); Red Cell Distribution Width 14.6 % (11.8-14.3); White Blood Cell 7.4 10^3/uL (4.4-10.8)
[2020-07-15 07:12] LABS: Potassium 3.3 mmol/L (3.5-5.1)
[2020-07-15 07:19] LABS: BUN/Creatinine Ratio 44.3; Bilirubin, Total 1.1 mg/dL (0.2-1.0); Calcium 8.1 mg/dL (8.5-10.1); Magnesium 2.7 mg/dL (1.6-2.6); Phosphorus 1.6 mg/dL (2.5-4.90); Total Protein 5.8 g/dL (6.4-8.2)
[2020-07-15] MEDS: ALBUTEROL SULF 2.5 MG/0.5ML(0.5%) NEB SOLN NEB SCH ×3 (07:49→22:09)
[2020-07-15] MEDS: ACETYLCYSTEINE 20%(200MG/ML) SOL 4ML NEB SCH ×3 (07:49→22:09)
[2020-07-15 09:00] VITALS: BP 130/78
[2020-07-15] MEDS: FUROSEMIDE 40 MG/4 ML VIAL IV SCH (09:42)
[2020-07-15] MEDS: methylPREDNISolone SOD SUCC 125 MG/2 ML VL IV SCH (09:42)
[2020-07-15] MEDS: FAMOTIDINE (10MG/ML) 2ML VL IV SCH ×2 (09:42→21:37)
[2020-07-15] MEDS: ZINC SULFATE 220mg CAP or TAB PO SCH (09:43)
[2020-07-15] MEDS: ENOXAPARIN SOD 120 MG/0.8 ML SYRINGE SC SCH (09:43)
[2020-07-15 12:30] VITALS: BP 119/86
[2020-07-15 17:00] VITALS: BP 154/71
[2020-07-15] MEDS: APIXABAN 5 MG TAB PO SCH (21:37)
[2020-07-15 22:17] VITALS: BP 125/61
[2020-07-16] MEDS: VANCOMYCIN 1GM/250ML 250 ML IV SCH ×2 (04:37→17:06)
[2020-07-16 05:00] VITALS: BP 132/63
[2020-07-16] MEDS: InsuLIN REG 1unit/0.01ml Soln (100units/ml) SC SCH ×3 (06:00→18:27)
[2020-07-16] MEDS: MEROPENEM 1GM IVPB 100 ML IV SCH ×3 (06:03→21:35)
[2020-07-16] MEDS: METOCLOPRAMIDE HCL 5MG/ml INJ 2ml VIAL IV SCH ×3 (06:03→18:23)
[2020-07-16] MEDS: ACCU-CHEK COMFORT CURVE STRIP VI SCH ×3 (06:15→18:23)
[2020-07-16] MEDS: ACETYLCYSTEINE 20%(200MG/ML) SOL 4ML NEB SCH ×3 (07:32→22:14)
[2020-07-16] MEDS: ALBUTEROL SULF 2.5 MG/0.5ML(0.5%) NEB SOLN NEB SCH ×3 (07:32→22:14)
[2020-07-16 08:40] VITALS: BP 132/63
[2020-07-16 09:00] VITALS: BP 120/65
[2020-07-16] MEDS: FUROSEMIDE 40 MG/4 ML VIAL IV SCH (10:01)
[2020-07-16] MEDS: FAMOTIDINE (10MG/ML) 2ML VL IV SCH ×2 (10:02→21:34)
[2020-07-16] MEDS: methylPREDNISolone SOD SUCC 125 MG/2 ML VL IV SCH (10:03)
[2020-07-16] MEDS: APIXABAN 5 MG TAB PO SCH ×2 (10:06→21:35)
[2020-07-16] MEDS: ZINC SULFATE 220mg CAP or TAB PO SCH (10:06)
[2020-07-16] MEDS: methylPREDNISolone SOD SUCC 40 MG/ML VL IV SCH (12:38)
[2020-07-16 13:00] VITALS: BP 144/70
[2020-07-16 17:00] VITALS: BP 136/75
[2020-07-16 22:00] VITALS: BP 142/83
[2020-07-17] MEDS: METOCLOPRAMIDE HCL 5MG/ml INJ 2ml VIAL IV SCH ×5 (00:31→23:45)
[2020-07-17] MEDS: InsuLIN REG 1unit/0.01ml Soln (100units/ml) SC SCH ×5 (00:40→23:47)
[2020-07-17] MEDS: VANCOMYCIN 1GM/250ML 250 ML IV SCH ×2 (04:39→17:19)
[2020-07-17 05:00] VITALS: BP 139/88
[2020-07-17] MEDS: MEROPENEM 1GM IVPB 100 ML IV SCH ×3 (05:54→21:42)
[2020-07-17] MEDS: ACCU-CHEK COMFORT CURVE STRIP VI SCH ×5 (06:10→23:45)
[2020-07-17] MEDS: ACETYLCYSTEINE 20%(200MG/ML) SOL 4ML NEB SCH ×3 (06:20→22:36)
[2020-07-17] MEDS: ALBUTEROL SULF 2.5 MG/0.5ML(0.5%) NEB SOLN NEB SCH ×3 (06:20→22:36)
[2020-07-17 08:00] VITALS: BP 130/59
[2020-07-17] MEDS: FAMOTIDINE (10MG/ML) 2ML VL IV SCH ×2 (11:25→21:42)
[2020-07-17] MEDS: methylPREDNISolone SOD SUCC 40 MG/ML VL IV SCH (11:25)
[2020-07-17] MEDS: FUROSEMIDE 40 MG/4 ML VIAL IV SCH (11:25)
[2020-07-17] MEDS: APIXABAN 5 MG TAB PO SCH ×2 (11:25→21:42)
[2020-07-17] MEDS: ZINC SULFATE 220mg CAP or TAB PO SCH (11:25)
[2020-07-17 11:56] VITALS: BP 145/78
[2020-07-17 17:00] VITALS: BP 146/65
[2020-07-17 22:10] VITALS: BP 116/83
[2020-07-18] MEDS: VANCOMYCIN 1GM/250ML 250 ML IV SCH ×2 (04:46→19:41)
[2020-07-18 05:02] VITALS: BP 141/84
[2020-07-18] MEDS: MEROPENEM 1GM IVPB 100 ML IV SCH ×3 (05:30→21:26)
[2020-07-18] MEDS: METOCLOPRAMIDE HCL 5MG/ml INJ 2ml VIAL IV SCH ×3 (05:30→18:16)
[2020-07-18] MEDS: InsuLIN REG 1unit/0.01ml Soln (100units/ml) SC SCH ×3 (05:45→18:28)
[2020-07-18] MEDS: ACCU-CHEK COMFORT CURVE STRIP VI SCH ×3 (05:45→18:15)
[2020-07-18 08:02] LABS: BUN/Creatinine Ratio 36.8; Calcium 8.5 mg/dL (8.5-10.1); Potassium 3.3 mmol/L (3.5-5.1)
[2020-07-18 09:07] VITALS: BP 126/70
[2020-07-18] MEDS: ZINC SULFATE 220mg CAP or TAB PO SCH (09:53)
[2020-07-18] MEDS: FAMOTIDINE (10MG/ML) 2ML VL IV SCH ×2 (09:53→21:26)
[2020-07-18] MEDS: methylPREDNISolone SOD SUCC 40 MG/ML VL IV SCH (09:53)
[2020-07-18] MEDS: FUROSEMIDE 40 MG/4 ML VIAL IV SCH (09:53)
[2020-07-18] MEDS: APIXABAN 5 MG TAB PO SCH ×2 (09:54→21:26)
[2020-07-18] MEDS: ACETYLCYSTEINE 20%(200MG/ML) SOL 4ML NEB SCH ×3 (10:26→22:14)
[2020-07-18] MEDS: ALBUTEROL SULF 2.5 MG/0.5ML(0.5%) NEB SOLN NEB SCH ×3 (10:26→22:14)
[2020-07-18] MEDS ORDERED: POTASSIUM EFFERVESENT TAB 25 MEQ PO ONE (15:00)
[2020-07-18 21:50] VITALS: BP 122/71
[2020-07-19] MEDS: METOCLOPRAMIDE HCL 5MG/ml INJ 2ml VIAL IV SCH ×5 (00:22→23:30)
[2020-07-19] MEDS: ACCU-CHEK COMFORT CURVE STRIP VI SCH ×5 (00:22→23:34)
[2020-07-19 05:30] VITALS: BP 144/60
[2020-07-19] MEDS: MEROPENEM 1GM IVPB 100 ML IV SCH ×3 (05:30→21:39)
[2020-07-19] MEDS: InsuLIN REG 1unit/0.01ml Soln (100units/ml) SC SCH ×5 (06:00→23:40)
[2020-07-19] MEDS: ACETYLCYSTEINE 20%(200MG/ML) SOL 4ML NEB SCH (08:20)
[2020-07-19] MEDS: ALBUTEROL SULF 2.5 MG/0.5ML(0.5%) NEB SOLN NEB SCH (08:20)
[2020-07-19 09:00] VITALS: BP 136/69
[2020-07-19 09:49] VITALS: BP 122/71
[2020-07-19] MEDS: ZINC SULFATE 220mg CAP or TAB PO SCH (09:58)
[2020-07-19] MEDS: FUROSEMIDE 40 MG/4 ML VIAL IV SCH (09:58)
[2020-07-19] MEDS: methylPREDNISolone SOD SUCC 40 MG/ML VL IV SCH (09:58)
[2020-07-19] MEDS: FAMOTIDINE (10MG/ML) 2ML VL IV SCH ×2 (09:58→21:39)
[2020-07-19] MEDS: APIXABAN 5 MG TAB PO SCH ×2 (09:59→21:39)
[2020-07-19] MEDS: POTASSIUM EFFERVESENT TAB 25 MEQ PO SCH (09:59)
[2020-07-19 13:00] VITALS: BP 109/61
[2020-07-19] MEDS: ALBUTEROL SULF HFA 90MCG INH 200DOSE IN SCH ×3 (15:20→23:22)
[2020-07-19 17:00] VITALS: BP 115/66
[2020-07-19] MEDS: VANCOMYCIN 1GM/250ML 250 ML IV SCH (19:30)
[2020-07-19 21:30] VITALS: BP 127/78
[2020-07-20 05:00] VITALS: BP 132/87
[2020-07-20] MEDS: MEROPENEM 1GM IVPB 100 ML IV SCH ×3 (05:31→21:47)
[2020-07-20] MEDS: METOCLOPRAMIDE HCL 5MG/ml INJ 2ml VIAL IV SCH ×3 (05:31→18:29)
[2020-07-20] MEDS: ACCU-CHEK COMFORT CURVE STRIP VI SCH ×3 (05:56→18:18)
[2020-07-20] MEDS: InsuLIN REG 1unit/0.01ml Soln (100units/ml) SC SCH ×3 (05:56→18:29)
[2020-07-20] MEDS: ALBUTEROL SULF HFA 90MCG INH 200DOSE IN SCH ×3 (07:17→21:35)
[2020-07-20 09:00] VITALS: BP 141/73
[2020-07-20] MEDS: FUROSEMIDE 40 MG/4 ML VIAL IV SCH (10:21)
[2020-07-20] MEDS: FAMOTIDINE (10MG/ML) 2ML VL IV SCH ×2 (10:21→21:47)
[2020-07-20] MEDS: ZINC SULFATE 220mg CAP or TAB PO SCH (10:22)
[2020-07-20] MEDS: methylPREDNISolone SOD SUCC 40 MG/ML VL IV SCH (10:22)
[2020-07-20] MEDS: APIXABAN 5 MG TAB PO SCH ×2 (10:22→21:47)
[2020-07-20] MEDS: POTASSIUM EFFERVESENT TAB 25 MEQ PO SCH (12:36)
[2020-07-20 13:00] VITALS: BP 127/73
[2020-07-20 17:30] VITALS: BP 153/84
[2020-07-20 19:58] LABS: Basophils # (auto) 0 10 ^3/uL (0-0.2); Basophils % (auto) 0.2 % (0.0-2.0); Eosinophils # (auto) 0 10 ^3/uL (0-0.8); Eosinophils % (auto) 0.3 % (0.0-7.0); Hematocrit 42.9 % (41.0-53.0); Hemoglobin 13.9 g/dL (13.5-17.5); Lymphocytes # (auto) 0.2 10 ^3/uL (0.4-5.4); Lymphocytes % (auto) 3.6 % (10.0-50.0); Mean Corpuscular Hemoglobin 31.6 pg (28.0-32.0); Mean Corpuscular Hgb Conc. 32.5 g/dL (32.0-36.0); Mean Corpuscular Volume 97.2 fL (80.0-100.0); Monocytes # (auto) 0.2 10 ^3/uL (0-1.3); Monocytes % (auto) 3.3 % (0.0-12.0); Neutrophils # (auto) 5.5 10 ^3/uL (1.6-8.6); Neutrophils % (auto) 92.6 % (37.0-80.0); Nucleated Red Blood Cells % 0.3 %; Platelet Count (auto) 186 10^3/uL (140-450); Red Blood Cells 4.41 10^6/uL (4.5-5.90); White Blood Cell 5.9 10^3/uL (4.4-10.8)
[2020-07-20 20:16] LABS: Albumin 2.2 g/dL (3.4-5.0); BUN/Creatinine Ratio 29.9; Calcium 8.5 mg/dL (8.5-10.1); Potassium 3.8 mmol/L (3.5-5.1)
[2020-07-20 20:20] LABS: Bilirubin, Total 1.4 mg/dL (0.2-1.0); Total Protein 6.3 g/dL (6.4-8.2)
[2020-07-20] MEDS: VANCOMYCIN 1GM/250ML 250 ML IV SCH (20:27)
[2020-07-20 22:06] VITALS: BP 129/68
[2020-07-21] MEDS: METOCLOPRAMIDE HCL 5MG/ml INJ 2ml VIAL IV SCH ×4 (00:11→17:33)
[2020-07-21] MEDS: ACCU-CHEK COMFORT CURVE STRIP VI SCH ×4 (00:11→17:33)
[2020-07-21 01:47] VITALS: BP 139/66
[2020-07-21] MEDS: MEROPENEM 1GM IVPB 100 ML IV SCH ×3 (05:36→22:55)
[2020-07-21] MEDS: InsuLIN REG 1unit/0.01ml Soln (100units/ml) SC SCH ×4 (05:37→17:33)
[2020-07-21 06:00] VITALS: BP 134/85
[2020-07-21] MEDS: ALBUTEROL SULF HFA 90MCG INH 200DOSE IN SCH ×3 (07:25→22:00)
[2020-07-21 09:00] VITALS: BP 131/87
[2020-07-21] MEDS: methylPREDNISolone SOD SUCC 40 MG/ML VL IV SCH ×2 (10:26→14:29)
[2020-07-21] MEDS: FAMOTIDINE (10MG/ML) 2ML VL IV SCH ×2 (10:26→22:56)
[2020-07-21] MEDS: ZINC SULFATE 220mg CAP or TAB PO SCH (10:27)
[2020-07-21] MEDS: POTASSIUM EFFERVESENT TAB 25 MEQ PO SCH ×3 (10:28→22:56)
[2020-07-21] MEDS: APIXABAN 5 MG TAB PO SCH ×2 (10:28→22:56)
[2020-07-21] MEDS: FUROSEMIDE 40 MG/4 ML VIAL IV SCH ×3 (11:09→17:29)
[2020-07-21] MEDS ORDERED: FUROSEMIDE 40 MG/4 ML VIAL IV SCH (13:15)
[2020-07-21 17:00] VITALS: BP 124/81
[2020-07-21] MEDS: VANCOMYCIN 1GM/250ML 250 ML IV SCH (19:49)
[2020-07-21 22:00] VITALS: BP 136/78
[2020-07-22] MEDS: METOCLOPRAMIDE HCL 5MG/ml INJ 2ml VIAL IV SCH ×5 (00:06→23:50)
[2020-07-22] MEDS: ACCU-CHEK COMFORT CURVE STRIP VI SCH ×5 (00:06→23:51)
[2020-07-22 04:00] VITALS: BP 146/74
[2020-07-22] MEDS: InsuLIN REG 1unit/0.01ml Soln (100units/ml) SC SCH ×5 (06:00→23:50)
[2020-07-22] MEDS: ALBUTEROL SULF HFA 90MCG INH 200DOSE IN SCH ×4 (06:41→22:00)
[2020-07-22] MEDS: MEROPENEM 1GM IVPB 100 ML IV SCH ×3 (06:42→21:36)
[2020-07-22] MEDS: FUROSEMIDE 40 MG/4 ML VIAL IV SCH ×2 (06:42→18:32)
[2020-07-22 09:00] VITALS: BP 146/68
[2020-07-22] MEDS: FAMOTIDINE (10MG/ML) 2ML VL IV SCH ×2 (09:32→21:36)
[2020-07-22] MEDS: APIXABAN 5 MG TAB PO SCH ×2 (09:32→21:35)
[2020-07-22] MEDS: ZINC SULFATE 220mg CAP or TAB PO SCH (09:32)
[2020-07-22] MEDS: methylPREDNISolone SOD SUCC 40 MG/ML VL IV SCH (09:32)
[2020-07-22] MEDS: POTASSIUM EFFERVESENT TAB 25 MEQ PO SCH ×2 (09:33→21:35)
[2020-07-22 10:24] VITALS: BP 144/66
[2020-07-22 13:00] VITALS: BP 143/73
[2020-07-22] MEDS: VANCOMYCIN 1GM/250ML 250 ML IV SCH (19:55)
[2020-07-22 20:00] VITALS: BP 136/75
[2020-07-23 05:17] VITALS: BP 137/69
[2020-07-23] MEDS: FUROSEMIDE 40 MG/4 ML VIAL IV SCH ×2 (05:54→17:39)
[2020-07-23] MEDS: METOCLOPRAMIDE HCL 5MG/ml INJ 2ml VIAL IV SCH ×4 (05:55→23:30)
[2020-07-23] MEDS: MEROPENEM 1GM IVPB 100 ML IV SCH ×3 (05:55→21:19)
[2020-07-23] MEDS: InsuLIN REG 1unit/0.01ml Soln (100units/ml) SC SCH ×4 (06:00→23:30)
[2020-07-23] MEDS: ACCU-CHEK COMFORT CURVE STRIP VI SCH ×4 (06:08→23:30)
[2020-07-23] MEDS: ALBUTEROL SULF HFA 90MCG INH 200DOSE IN SCH ×3 (07:40→22:00)
[2020-07-23 09:00] VITALS: BP 129/72
[2020-07-23] MEDS: FAMOTIDINE (10MG/ML) 2ML VL IV SCH ×2 (09:25→21:19)
[2020-07-23] MEDS: ZINC SULFATE 220mg CAP or TAB PO SCH (09:26)
[2020-07-23] MEDS: methylPREDNISolone SOD SUCC 40 MG/ML VL IV SCH (09:26)
[2020-07-23] MEDS: POTASSIUM EFFERVESENT TAB 25 MEQ PO SCH ×2 (09:27→21:37)
[2020-07-23] MEDS: APIXABAN 5 MG TAB PO SCH ×2 (09:27→21:37)
[2020-07-23 11:53] VITALS: BP 144/72
[2020-07-23 17:00] VITALS: BP 141/78
[2020-07-23] MEDS: VANCOMYCIN 1GM/250ML 250 ML IV SCH (20:04)
[2020-07-23 21:30] VITALS: BP 113/69
[2020-07-24 05:00] VITALS: BP 118/78
[2020-07-24] MEDS: FUROSEMIDE 40 MG/4 ML VIAL IV SCH ×2 (05:35→17:42)
[2020-07-24] MEDS: METOCLOPRAMIDE HCL 5MG/ml INJ 2ml VIAL IV SCH ×3 (05:35→17:42)
[2020-07-24] MEDS: MEROPENEM 1GM IVPB 100 ML IV SCH ×3 (05:35→22:26)
[2020-07-24] MEDS: ACCU-CHEK COMFORT CURVE STRIP VI SCH ×3 (05:36→18:06)
[2020-07-24] MEDS: InsuLIN REG 1unit/0.01ml Soln (100units/ml) SC SCH ×3 (05:50→18:16)
[2020-07-24] MEDS: ALBUTEROL SULF HFA 90MCG INH 200DOSE IN SCH ×3 (08:06→21:58)
[2020-07-24] MEDS: FAMOTIDINE (10MG/ML) 2ML VL IV SCH ×2 (08:33→22:26)
[2020-07-24] MEDS: POTASSIUM EFFERVESENT TAB 25 MEQ PO SCH ×2 (08:34→22:26)
[2020-07-24] MEDS: methylPREDNISolone SOD SUCC 40 MG/ML VL IV SCH (08:34)
[2020-07-24] MEDS: ZINC SULFATE 220mg CAP or TAB PO SCH (08:34)
[2020-07-24] MEDS: APIXABAN 5 MG TAB PO SCH ×2 (08:34→22:26)
[2020-07-24 08:56] VITALS: BP 138/88
[2020-07-24 17:00] VITALS: BP_SYST 127; BP_SYST 140; BP_DIAS 61; BP_DIAS 76
[2020-07-24] MEDS: VANCOMYCIN 1GM/250ML 250 ML IV SCH (20:18)
[2020-07-25 05:00] VITALS: BP 120/76
[2020-07-25] MEDS: InsuLIN REG 1unit/0.01ml Soln (100units/ml) SC SCH ×4 (06:00→18:21)
[2020-07-25] MEDS: FUROSEMIDE 40 MG/4 ML VIAL IV SCH ×2 (06:27→18:06)
[2020-07-25] MEDS: ACCU-CHEK COMFORT CURVE STRIP VI SCH ×4 (06:27→18:06)
[2020-07-25] MEDS: METOCLOPRAMIDE HCL 5MG/ml INJ 2ml VIAL IV SCH ×4 (06:27→18:06)
[2020-07-25] MEDS: MEROPENEM 1GM IVPB 100 ML IV SCH ×3 (06:28→21:56)
[2020-07-25] MEDS: ALBUTEROL SULF HFA 90MCG INH 200DOSE IN SCH ×3 (06:48→22:00)
[2020-07-25 09:00] VITALS: BP 103/54
[2020-07-25] MEDS: methylPREDNISolone SOD SUCC 40 MG/ML VL IV SCH (09:41)
[2020-07-25] MEDS: ZINC SULFATE 220mg CAP or TAB PO SCH (09:41)
[2020-07-25] MEDS: POTASSIUM EFFERVESENT TAB 25 MEQ PO SCH ×2 (09:41→21:56)
[2020-07-25] MEDS: APIXABAN 5 MG TAB PO SCH ×2 (09:41→21:56)
[2020-07-25] MEDS: FAMOTIDINE (10MG/ML) 2ML VL IV SCH ×2 (09:41→21:56)
[2020-07-25 09:49] VITALS: BP 120/76
[2020-07-25 13:00] VITALS: BP 114/44
[2020-07-25 17:00] VITALS: BP 123/53
[2020-07-25] MEDS: VANCOMYCIN 1GM/250ML 250 ML IV SCH (19:58)
[2020-07-25 21:17] VITALS: BP 120/78
[2020-07-26] MEDS: InsuLIN REG 1unit/0.01ml Soln (100units/ml) SC SCH ×4 (00:30→17:32)
[2020-07-26] MEDS: METOCLOPRAMIDE HCL 5MG/ml INJ 2ml VIAL IV SCH ×4 (00:36→17:26)
[2020-07-26] MEDS: ACCU-CHEK COMFORT CURVE STRIP VI SCH ×4 (00:37→17:26)
[2020-07-26] MEDS: MEROPENEM 1GM IVPB 100 ML IV SCH ×3 (06:35→22:24)
[2020-07-26] MEDS: FUROSEMIDE 40 MG/4 ML VIAL IV SCH ×2 (06:36→17:25)
[2020-07-26] MEDS: ALBUTEROL SULF HFA 90MCG INH 200DOSE IN SCH ×3 (07:40→21:31)
[2020-07-26 09:30] VITALS: BP 133/76
[2020-07-26] MEDS: ZINC SULFATE 220mg CAP or TAB PO SCH (09:43)
[2020-07-26] MEDS: methylPREDNISolone SOD SUCC 40 MG/ML VL IV SCH (09:43)
[2020-07-26] MEDS: FAMOTIDINE (10MG/ML) 2ML VL IV SCH ×2 (09:43→22:24)
[2020-07-26] MEDS: APIXABAN 5 MG TAB PO SCH ×2 (09:44→22:00)
[2020-07-26] MEDS: POTASSIUM EFFERVESENT TAB 25 MEQ PO SCH ×2 (09:44→22:24)
[2020-07-26 12:00] VITALS: BP 125/83
[2020-07-26 17:00] VITALS: BP 143/75
[2020-07-26] MEDS: VANCOMYCIN 1GM/250ML 250 ML IV SCH (20:00)
[2020-07-26 22:00] VITALS: BP 139/72
[2020-07-27] MEDS: METOCLOPRAMIDE HCL 5MG/ml INJ 2ml VIAL IV SCH ×3 (00:47→12:27)
[2020-07-27] MEDS: ACCU-CHEK COMFORT CURVE STRIP VI SCH ×4 (06:00→18:00)
[2020-07-27] MEDS: InsuLIN REG 1unit/0.01ml Soln (100units/ml) SC SCH ×4 (06:00→18:00)
[2020-07-27] MEDS: FUROSEMIDE 40 MG/4 ML VIAL IV SCH (06:23)
[2020-07-27] MEDS: MEROPENEM 1GM IVPB 100 ML IV SCH (06:23)
[2020-07-27 08:00] VITALS: BP 119/76
[2020-07-27] MEDS: ALBUTEROL SULF HFA 90MCG INH 200DOSE IN SCH ×3 (08:42→22:00)
[2020-07-27] MEDS: POTASSIUM EFFERVESENT TAB 25 MEQ PO SCH ×2 (09:38→22:00)
[2020-07-27] MEDS: methylPREDNISolone SOD SUCC 40 MG/ML VL IV SCH (09:38)
[2020-07-27] MEDS: APIXABAN 5 MG TAB PO SCH ×2 (09:38→22:45)
[2020-07-27] MEDS: FAMOTIDINE (10MG/ML) 2ML VL IV SCH ×2 (09:38→22:44)
[2020-07-27] MEDS: ZINC SULFATE 220mg CAP or TAB PO SCH (09:38)
[2020-07-27] MEDS ORDERED: VANCOMYCIN 1GM/250ML 250 ML IV ONE (11:00)
[2020-07-27] MEDS ORDERED: VANCOMYCIN 1GM/250ML 250 ML IV SCH (11:00)
[2020-07-27 11:48] VITALS: BP 109/70
[2020-07-27 12:22] LABS: Hematocrit 39.9 % (41.0-53.0); Hemoglobin 13.5 g/dL (13.5-17.5); Mean Corpuscular Hemoglobin 31.9 pg (28.0-32.0); Mean Corpuscular Hgb Conc. 33.7 g/dL (32.0-36.0); Mean Corpuscular Volume 94.5 fL (80.0-100.0); Platelet Count (auto) 137 10^3/uL (140-450); Red Blood Cells 4.23 10^6/uL (4.5-5.90); Red Cell Distribution Width 14.8 % (11.8-14.3); White Blood Cell 8.8 10^3/uL (4.4-10.8)
[2020-07-27 12:27] LABS: Basophils % (manual) 0 (0.0-2.0); Blast Cells 0; Eosinophils % (manual) 0 (0-7); Myelocytes % 0; Promyelocytes % 0; Reactive Lymphocytes 0
[2020-07-27 12:42] LABS: Band Neutrophils % (manual) 1; Lymphocytes % (manual) 1 (10.0-50.0); Metamyelocytes % 2; Monocytes % (manual) 2 (0-12)
[2020-07-27 12:57] LABS: Albumin 1.3 g/dL (3.4-5.0); BUN/Creatinine Ratio 28.2; Calcium 8.6 mg/dL (8.5-10.1); Potassium 3.2 mmol/L (3.5-5.1)
[2020-07-27 13:01] LABS: Bilirubin, Total 1.9 mg/dL (0.2-1.0); Total Protein 6.4 g/dL (6.4-8.2)
[2020-07-27] MEDS ORDERED: POTASSIUM CHL 20 Meq TABLET PO ONE (16:00)
[2020-07-27 17:00] VITALS: BP 128/76
[2020-07-27 22:00] VITALS: BP 134/67
[2020-07-27] MEDS: LACTULOSE 20Gm/30ML SOLN PO SCH (22:00)
[2020-07-28 05:00] VITALS: BP 135/76
[2020-07-28] MEDS: InsuLIN REG 1unit/0.01ml Soln (100units/ml) SC SCH ×5 (06:00→23:37)
[2020-07-28] MEDS ORDERED: VANCOMYCIN 1GM/250ML 250 ML IV SCH (06:00)
[2020-07-28] MEDS: ACCU-CHEK COMFORT CURVE STRIP VI SCH ×5 (06:14→23:37)
[2020-07-28] MEDS: LACTULOSE 20Gm/30ML SOLN PO SCH ×3 (06:14→21:51)
[2020-07-28] MEDS: ALBUTEROL SULF HFA 90MCG INH 200DOSE IN SCH ×3 (06:32→22:05)
[2020-07-28 09:00] VITALS: BP 118/70
[2020-07-28] MEDS: FAMOTIDINE (10MG/ML) 2ML VL IV SCH ×2 (09:46→21:51)
[2020-07-28] MEDS: ZINC SULFATE 220mg CAP or TAB PO SCH (09:46)
[2020-07-28] MEDS: POTASSIUM EFFERVESENT TAB 25 MEQ PO SCH ×2 (09:47→21:51)
[2020-07-28] MEDS: APIXABAN 5 MG TAB PO SCH ×2 (09:47→21:51)
[2020-07-28 10:55] VITALS: BP 135/76
[2020-07-28 13:00] VITALS: BP 116/73
[2020-07-28 22:00] VITALS: BP 105/65
[2020-07-29 05:00] VITALS: BP 121/72
[2020-07-29] MEDS: LACTULOSE 20Gm/30ML SOLN PO SCH ×3 (05:44→22:00)
[2020-07-29] MEDS: InsuLIN REG 1unit/0.01ml Soln (100units/ml) SC SCH ×3 (05:44→16:36)
[2020-07-29] MEDS: ACCU-CHEK COMFORT CURVE STRIP VI SCH ×3 (05:45→16:36)
[2020-07-29] MEDS: ALBUTEROL SULF HFA 90MCG INH 200DOSE IN SCH ×3 (06:53→22:59)
[2020-07-29 09:00] VITALS: BP 131/56
[2020-07-29] MEDS: POTASSIUM EFFERVESENT TAB 25 MEQ PO SCH ×2 (10:00→22:00)
[2020-07-29] MEDS: APIXABAN 5 MG TAB PO SCH ×2 (10:00→22:00)
[2020-07-29] MEDS: ZINC SULFATE 220mg CAP or TAB PO SCH (10:00)
[2020-07-29] MEDS: FAMOTIDINE (10MG/ML) 2ML VL IV SCH ×2 (10:07→22:24)
[2020-07-29 13:00] VITALS: BP 102/59
[2020-07-29 22:00] VITALS: BP 90/59
[2020-07-30] MEDS: ACCU-CHEK COMFORT CURVE STRIP VI SCH ×5 (00:08→23:37)
[2020-07-30 05:00] VITALS: BP 103/57
[2020-07-30] MEDS: InsuLIN REG 1unit/0.01ml Soln (100units/ml) SC SCH ×5 (06:00→23:37)
[2020-07-30] MEDS: LACTULOSE 20Gm/30ML SOLN PO SCH ×3 (06:00→21:51)
[2020-07-30] MEDS: ALBUTEROL SULF HFA 90MCG INH 200DOSE IN SCH ×3 (06:34→21:40)
[2020-07-30 08:00] VITALS: BP 126/64
[2020-07-30] MEDS: POTASSIUM EFFERVESENT TAB 25 MEQ PO SCH ×2 (09:34→21:51)
[2020-07-30] MEDS: FAMOTIDINE (10MG/ML) 2ML VL IV SCH ×2 (09:34→21:51)
[2020-07-30] MEDS: APIXABAN 5 MG TAB PO SCH ×2 (09:34→21:51)
[2020-07-30] MEDS: ZINC SULFATE 220mg CAP or TAB PO SCH (09:36)
[2020-07-30 12:00] VITALS: BP 131/68
[2020-07-30] MEDS ORDERED: MIDAZOLAM HCL 5 MG/ML-1ML VIAL IV ONE (14:00)
[2020-07-30 17:00] VITALS: BP 117/73
[2020-07-30 22:05] VITALS: BP 126/68
[2020-07-31 05:22] VITALS: BP 112/94
[2020-07-31] MEDS: ACCU-CHEK COMFORT CURVE STRIP VI SCH ×3 (06:25→18:39)
[2020-07-31] MEDS: InsuLIN REG 1unit/0.01ml Soln (100units/ml) SC SCH ×3 (06:25→18:00)
[2020-07-31] MEDS: LACTULOSE 20Gm/30ML SOLN PO SCH ×3 (06:38→21:43)
[2020-07-31] MEDS: ALBUTEROL SULF HFA 90MCG INH 200DOSE IN SCH ×3 (07:02→22:28)
[2020-07-31 08:00] VITALS: BP 112/60
[2020-07-31 09:51] VITALS: BP 112/60
[2020-07-31] MEDS: ZINC SULFATE 220mg CAP or TAB PO SCH (10:00)
[2020-07-31] MEDS: FAMOTIDINE (10MG/ML) 2ML VL IV SCH ×2 (10:00→21:27)
[2020-07-31] MEDS: APIXABAN 5 MG TAB PO SCH ×2 (10:00→21:43)
[2020-07-31] MEDS: POTASSIUM EFFERVESENT TAB 25 MEQ PO SCH ×2 (10:00→21:43)
[2020-07-31 12:00] VITALS: BP 113/65
[2020-07-31 17:00] VITALS: BP 98/63
[2020-07-31 21:30] VITALS: BP 94/60
[2020-08-01] MEDS: ACCU-CHEK COMFORT CURVE STRIP VI SCH ×4 (00:24→17:59)
[2020-08-01 05:00] VITALS: BP 102/56
[2020-08-01] MEDS: InsuLIN REG 1unit/0.01ml Soln (100units/ml) SC SCH ×4 (06:00→17:59)
[2020-08-01] MEDS: LACTULOSE 20Gm/30ML SOLN PO SCH ×3 (06:00→22:00)
[2020-08-01] MEDS: ALBUTEROL SULF HFA 90MCG INH 200DOSE IN SCH ×3 (07:20→22:34)
[2020-08-01 09:13] VITALS: BP 98/60
[2020-08-01] MEDS: POTASSIUM EFFERVESENT TAB 25 MEQ PO SCH ×2 (10:00→22:00)
[2020-08-01] MEDS: ZINC SULFATE 220mg CAP or TAB PO SCH (10:00)
[2020-08-01] MEDS: APIXABAN 5 MG TAB PO SCH ×2 (11:09→22:36)
[2020-08-01] MEDS: FAMOTIDINE (10MG/ML) 2ML VL IV SCH ×2 (11:09→22:35)
[2020-08-01 17:24] VITALS: BP 102/56
[2020-08-01 22:00] VITALS: BP 96/53
[2020-08-02 05:00] VITALS: BP 100/60
[2020-08-02] MEDS: ACCU-CHEK COMFORT CURVE STRIP VI SCH ×4 (06:00→18:29)
[2020-08-02] MEDS: LACTULOSE 20Gm/30ML SOLN PO SCH ×3 (06:00→22:00)
[2020-08-02] MEDS: InsuLIN REG 1unit/0.01ml Soln (100units/ml) SC SCH ×4 (06:00→18:00)
[2020-08-02] MEDS: ALBUTEROL SULF HFA 90MCG INH 200DOSE IN SCH ×3 (07:22→22:37)
[2020-08-02 08:26] VITALS: BP 106/61
[2020-08-02] MEDS: FAMOTIDINE (10MG/ML) 2ML VL IV SCH ×2 (10:02→22:14)
[2020-08-02] MEDS: APIXABAN 5 MG TAB PO SCH ×2 (10:02→22:14)
[2020-08-02] MEDS: ZINC SULFATE 220mg CAP or TAB PO SCH (10:02)
[2020-08-02] MEDS: POTASSIUM EFFERVESENT TAB 25 MEQ PO SCH ×2 (10:02→22:00)
[2020-08-02 12:42] VITALS: BP 120/60
[2020-08-02 17:00] VITALS: BP 112/60
[2020-08-02 22:00] VITALS: BP 107/66
[2020-08-03] MEDS: ACCU-CHEK COMFORT CURVE STRIP VI SCH ×5 (00:05→23:44)
[2020-08-03 06:00] VITALS: BP 107/59
[2020-08-03] MEDS: InsuLIN REG 1unit/0.01ml Soln (100units/ml) SC SCH ×5 (06:00→23:44)
[2020-08-03] MEDS: ALBUTEROL SULF HFA 90MCG INH 200DOSE IN SCH ×3 (06:00→22:31)
[2020-08-03] MEDS: LACTULOSE 20Gm/30ML SOLN PO SCH ×4 (06:00→22:06)
[2020-08-03 08:55] VITALS: BP 109/61
[2020-08-03] MEDS: FAMOTIDINE (10MG/ML) 2ML VL IV SCH ×2 (09:48→22:06)
[2020-08-03] MEDS: ZINC SULFATE 220mg CAP or TAB PO SCH (09:49)
[2020-08-03] MEDS: APIXABAN 5 MG TAB PO SCH ×2 (09:49→23:30)
[2020-08-03] MEDS: POTASSIUM EFFERVESENT TAB 25 MEQ PO SCH ×2 (09:50→22:06)
[2020-08-03 13:10] VITALS: BP 126/62
[2020-08-03 13:17] VITALS: BP 124/61
[2020-08-03] MEDS ORDERED: D5W/SOD CHL 0.45% 1,000 ML IV SCH (13:45)
[2020-08-03] MEDS ORDERED: FUROSEMIDE 20 MG/2 ML VIAL IV ONE (13:45)
[2020-08-03 16:01] LABS: BUN/Creatinine Ratio 17.6; Calcium 8.5 mg/dL (8.5-10.1); Potassium 4.8 mmol/L (3.5-5.1)
[2020-08-03 16:38] VITALS: BP 124/66
[2020-08-03] MEDS: ACETAMINOPHEN 650 mg PER 20.3 mL UD GT PRN (16:58)
[2020-08-03] MEDS ORDERED: VANCOMYCIN PER PHARMACY 0 MG IV SCH (17:30)
[2020-08-03] MEDS: VANCOMYCIN 1GM/250ML 250 ML IV SCH (17:57)
[2020-08-03] MEDS ORDERED: SODIUM CHL 3% 250 ML IV ONE (18:00)
[2020-08-03] MEDS ORDERED: PIPERACILLIN-TAZOB 3.375GM 100 ML IV SCH (18:00)
[2020-08-03] MEDS: PIPERACILLIN-TAZOB 3.375GM 100 ML IV SCH (20:31)
[2020-08-03 22:00] VITALS: BP 115/56
[2020-08-03 23:15] LABS: Basophils # (auto) 0 10 ^3/uL (0-0.2); Basophils % (auto) 0.4 % (0.0-2.0); Eosinophils # (auto) 0.1 10 ^3/uL (0-0.8); Eosinophils % (auto) 1.3 % (0.0-7.0); Hematocrit 32.2 % (41.0-53.0); Hemoglobin 11.3 g/dL (13.5-17.5); Lymphocytes # (auto) 0.6 10 ^3/uL (0.4-5.4); Mean Corpuscular Hemoglobin 32.3 pg (28.0-32.0); Mean Corpuscular Hgb Conc. 35.1 g/dL (32.0-36.0); Monocytes # (auto) 0.2 10 ^3/uL (0-1.3); Neutrophils # (auto) 6.4 10 ^3/uL (1.6-8.6); Neutrophils % (auto) 87.3 % (37.0-80.0); Nucleated Red Blood Cells % 0.2 %; Platelet Count (auto) 115 10^3/uL (140-450); Red Cell Distribution Width 15.7 % (11.8-14.3); White Blood Cell 7.3 10^3/uL (4.4-10.8)
[2020-08-03 23:31] LABS: INR 1.31 (0.9-1.15); Partial Thromboplastin Time 34.4 sec (23.0-31.2)
[2020-08-04] MEDS: PIPERACILLIN-TAZOB 3.375GM 100 ML IV SCH ×3 (04:10→20:45)
[2020-08-04 04:43] VITALS: BP 110/51
[2020-08-04] MEDS: LACTULOSE 20Gm/30ML SOLN PO SCH ×4 (05:38→21:38)
[2020-08-04] MEDS: FUROSEMIDE 40 MG/4 ML VIAL IV SCH ×2 (05:38→17:18)
[2020-08-04] MEDS: ACCU-CHEK COMFORT CURVE STRIP VI SCH ×3 (05:51→17:46)
[2020-08-04] MEDS: InsuLIN REG 1unit/0.01ml Soln (100units/ml) SC SCH ×3 (05:52→17:46)
[2020-08-04] MEDS: ALBUTEROL SULF HFA 90MCG INH 200DOSE IN SCH ×3 (06:56→23:03)
[2020-08-04 07:23] LABS: Calcium 7.6 mg/dL (8.5-10.1); Potassium 3.2 mmol/L (3.5-5.1)
[2020-08-04 07:25] LABS: BUN/Creatinine Ratio 19.4
[2020-08-04 08:00] VITALS: BP 119/64
[2020-08-04] MEDS: ZINC SULFATE 220mg CAP or TAB PO SCH (09:45)
[2020-08-04] MEDS: FAMOTIDINE (10MG/ML) 2ML VL IV SCH ×2 (09:45→21:38)
[2020-08-04] MEDS: APIXABAN 5 MG TAB PO SCH ×2 (09:45→21:38)
[2020-08-04] MEDS: POTASSIUM EFFERVESENT TAB 25 MEQ PO SCH ×2 (09:46→21:40)
[2020-08-04] MEDS ORDERED: FUROSEMIDE 20 MG/2 ML VIAL IV SCH (10:00)
[2020-08-04 12:00] VITALS: BP 116/59
[2020-08-04 17:00] VITALS: BP 106/59
[2020-08-04] MEDS: VANCOMYCIN 1GM/250ML 250 ML IV SCH (17:45)
[2020-08-04] MEDS ORDERED: POTASSIUM EFFERVESENT TAB 25 MEQ PO ONE (19:30)
[2020-08-04 22:00] VITALS: BP 120/62
[2020-08-05] MEDS: PIPERACILLIN-TAZOB 3.375GM 100 ML IV SCH ×3 (04:21→20:11)
[2020-08-05 05:00] VITALS: BP 113/59
[2020-08-05] MEDS: InsuLIN REG 1unit/0.01ml Soln (100units/ml) SC SCH ×4 (06:00→18:00)
[2020-08-05] MEDS: LACTULOSE 20Gm/30ML SOLN PO SCH ×3 (06:00→22:00)
[2020-08-05] MEDS: FUROSEMIDE 40 MG/4 ML VIAL IV SCH ×2 (06:06→18:02)
[2020-08-05] MEDS: ACCU-CHEK COMFORT CURVE STRIP VI SCH ×4 (06:06→18:10)
[2020-08-05] MEDS: ALBUTEROL SULF HFA 90MCG INH 200DOSE IN SCH ×3 (07:02→22:47)
[2020-08-05] MEDS ORDERED: LORazepam 2MG/ML-1ML VIAL IV PRN (07:30)
[2020-08-05 09:00] VITALS: BP 112/68
[2020-08-05] MEDS: APIXABAN 5 MG TAB PO SCH ×2 (09:22→22:00)
[2020-08-05] MEDS: ZINC SULFATE 220mg CAP or TAB PO SCH (09:22)
[2020-08-05] MEDS: POTASSIUM EFFERVESENT TAB 25 MEQ PO SCH ×2 (09:24→22:00)
[2020-08-05] MEDS: FAMOTIDINE (10MG/ML) 2ML VL IV SCH ×2 (09:25→22:00)
[2020-08-05 13:00] VITALS: BP 115/57
[2020-08-05] MEDS ORDERED: LIDOCAINE 1% (LOCAL ANESTH.) PF 5ml SDV ID ONE (13:30)
[2020-08-05 17:00] VITALS: BP 113/53
[2020-08-05] MEDS: VANCOMYCIN 1GM/250ML 250 ML IV SCH (18:01)
[2020-08-05 22:00] VITALS: BP 127/57
[2020-08-05] MEDS: SODIUM CHLOR 0.9% PF (SALINE LOCK) 10ML VIAL/SYR IV SCH (22:00)
[2020-08-05 23:31] LABS: BUN/Creatinine Ratio 14.3; Calcium 8.1 mg/dL (8.5-10.1); Potassium 4.5 mmol/L (3.5-5.1)
[2020-08-06] MEDS: PIPERACILLIN-TAZOB 3.375GM 100 ML IV SCH ×3 (04:04→20:05)
[2020-08-06 05:00] VITALS: BP 106/61
[2020-08-06] MEDS: LACTULOSE 20Gm/30ML SOLN PO SCH ×3 (05:35→21:59)
[2020-08-06] MEDS: ACCU-CHEK COMFORT CURVE STRIP VI SCH ×5 (05:47→23:34)
[2020-08-06] MEDS: FUROSEMIDE 40 MG/4 ML VIAL IV SCH ×2 (05:47→17:37)
[2020-08-06] MEDS: InsuLIN REG 1unit/0.01ml Soln (100units/ml) SC SCH ×5 (05:47→23:35)
[2020-08-06] MEDS: ALBUTEROL SULF HFA 90MCG INH 200DOSE IN SCH ×3 (07:00→22:37)
[2020-08-06 08:24] LABS: Potassium 3.2 mmol/L (3.5-5.1)
[2020-08-06 08:29] LABS: BUN/Creatinine Ratio 15.3; Calcium 7.9 mg/dL (8.5-10.1)
[2020-08-06 09:00] VITALS: BP 103/65
[2020-08-06] MEDS: POTASSIUM EFFERVESENT TAB 25 MEQ PO SCH ×2 (10:00→21:59)
[2020-08-06] MEDS: FAMOTIDINE (10MG/ML) 2ML VL IV SCH ×2 (10:31→21:59)
[2020-08-06] MEDS: ZINC SULFATE 220mg CAP or TAB PO SCH (10:32)
[2020-08-06] MEDS: SODIUM CHLOR 0.9% PF (SALINE LOCK) 10ML VIAL/SYR IV SCH ×2 (10:32→21:59)
[2020-08-06] MEDS: APIXABAN 5 MG TAB PO SCH ×2 (10:32→21:59)
[2020-08-06 13:00] VITALS: BP 98/59
[2020-08-06 17:00] VITALS: BP 102/54
[2020-08-06] MEDS: VANCOMYCIN 1GM/250ML 250 ML IV SCH (17:37)
[2020-08-06] MEDS: ACETAMINOPHEN 650 mg PER 20.3 mL UD PO PRN (21:58)
[2020-08-06 22:00] VITALS: BP 110/71
[2020-08-07] MEDS: PIPERACILLIN-TAZOB 3.375GM 100 ML IV SCH ×3 (04:44→20:41)
[2020-08-07 05:00] VITALS: BP 120/63
[2020-08-07] MEDS: LACTULOSE 20Gm/30ML SOLN PO SCH ×3 (05:56→21:44)
[2020-08-07] MEDS: FUROSEMIDE 40 MG/4 ML VIAL IV SCH ×2 (05:56→17:52)
[2020-08-07] MEDS: ACCU-CHEK COMFORT CURVE STRIP VI SCH ×3 (05:56→17:52)
[2020-08-07] MEDS: InsuLIN REG 1unit/0.01ml Soln (100units/ml) SC SCH ×3 (05:57→17:52)
[2020-08-07] MEDS: ALBUTEROL SULF HFA 90MCG INH 200DOSE IN SCH ×3 (07:05→22:36)
[2020-08-07 09:00] VITALS: BP 105/54
[2020-08-07] MEDS: SODIUM CHLOR 0.9% PF (SALINE LOCK) 10ML VIAL/SYR IV SCH ×2 (10:32→21:44)
[2020-08-07] MEDS: FAMOTIDINE (10MG/ML) 2ML VL IV SCH ×2 (10:32→21:44)
[2020-08-07] MEDS: APIXABAN 5 MG TAB PO SCH ×2 (10:32→21:43)
[2020-08-07] MEDS: ZINC SULFATE 220mg CAP or TAB PO SCH (10:34)
[2020-08-07] MEDS: POTASSIUM EFFERVESENT TAB 25 MEQ PO SCH ×2 (10:52→21:44)
[2020-08-07] MEDS: ACETAMINOPHEN 650 mg PER 20.3 mL UD PO PRN (10:53)
[2020-08-07 13:00] VITALS: BP 96/54
[2020-08-07] MEDS ORDERED: VANCOMYCIN 1GM/250ML 250 ML IV SCH (14:00)
[2020-08-07 17:00] VITALS: BP 93/50
[2020-08-07] MEDS: VANCOMYCIN 1GM/250ML 250 ML IV SCH (17:25)
[2020-08-07 22:00] VITALS: BP 104/51
[2020-08-08] MEDS: ACCU-CHEK COMFORT CURVE STRIP VI SCH ×5 (01:13→23:34)
[2020-08-08] MEDS: PIPERACILLIN-TAZOB 3.375GM 100 ML IV SCH ×3 (04:17→20:53)
[2020-08-08 05:00] VITALS: BP 99/60
[2020-08-08] MEDS: LACTULOSE 20Gm/30ML SOLN PO SCH (06:00)
[2020-08-08] MEDS: InsuLIN REG 1unit/0.01ml Soln (100units/ml) SC SCH ×5 (06:00→23:34)
[2020-08-08] MEDS: FUROSEMIDE 40 MG/4 ML VIAL IV SCH ×2 (06:16→17:54)
[2020-08-08] MEDS: ALBUTEROL SULF HFA 90MCG INH 200DOSE IN SCH ×3 (07:10→22:18)
[2020-08-08 07:24] LABS: Hematocrit 26.7 % (41.0-53.0); Hemoglobin 9.2 g/dL (13.5-17.5); Mean Corpuscular Hemoglobin 31.8 pg (28.0-32.0); Mean Corpuscular Hgb Conc. 34.5 g/dL (32.0-36.0); Mean Corpuscular Volume 92.2 fL (80.0-100.0); Platelet Count (auto) 157 10^3/uL (140-450); White Blood Cell 5.6 10^3/uL (4.4-10.8)
[2020-08-08 07:28] LABS: Basophils % (manual) 0 (0.0-2.0); Blast Cells 0; Eosinophils % (manual) 0 (0-7); Myelocytes % 0; Promyelocytes % 0; Reactive Lymphocytes 0
[2020-08-08 07:40] LABS: Albumin 1.6 g/dL (3.4-5.0); Calcium 7.7 mg/dL (8.5-10.1)
[2020-08-08 07:45] LABS: Bilirubin, Total 1.1 mg/dL (0.2-1.0); Total Protein 5.5 g/dL (6.4-8.2)
[2020-08-08 07:46] LABS: Potassium 2.9 mmol/L (3.5-5.1)
[2020-08-08 08:23] LABS: Band Neutrophils % (manual) 9; Lymphocytes % (manual) 10 (10.0-50.0); Metamyelocytes % 2; Monocytes % (manual) 6 (0-12)
[2020-08-08] MEDS: ZINC SULFATE 220mg CAP or TAB PO SCH (08:28)
[2020-08-08] MEDS: FAMOTIDINE (10MG/ML) 2ML VL IV SCH ×2 (08:28→21:39)
[2020-08-08] MEDS: POTASSIUM EFFERVESENT TAB 25 MEQ PO SCH ×2 (08:28→21:40)
[2020-08-08] MEDS: APIXABAN 5 MG TAB PO SCH ×2 (08:28→21:40)
[2020-08-08] MEDS: SODIUM CHLOR 0.9% PF (SALINE LOCK) 10ML VIAL/SYR IV SCH ×2 (08:28→21:39)
[2020-08-08] MEDS: POTASSIUM CHL 20MEQ/100ML 100 ML IV SCH ×2 (08:28→10:59)
[2020-08-08 08:48] LABS: BUN/Creatinine Ratio 10.6
[2020-08-08 09:00] VITALS: BP 98/58
[2020-08-08 13:00] VITALS: BP 120/58
[2020-08-08] MEDS: VANCOMYCIN 1GM/250ML 250 ML IV SCH (13:42)
[2020-08-08 16:32] LABS: Calcium 7.6 mg/dL (8.5-10.1); Potassium 3.5 mmol/L (3.5-5.1)
[2020-08-08 17:00] VITALS: BP 119/67
[2020-08-08 19:17] LABS: BUN/Creatinine Ratio 10.6
[2020-08-08 22:00] VITALS: BP 99/70
[2020-08-09] MEDS: PIPERACILLIN-TAZOB 3.375GM 100 ML IV SCH ×3 (04:07→20:00)
[2020-08-09 04:57] VITALS: BP 139/66
[2020-08-09] MEDS: ACCU-CHEK COMFORT CURVE STRIP VI SCH ×3 (05:30→17:39)
[2020-08-09] MEDS: FUROSEMIDE 40 MG/4 ML VIAL IV SCH ×2 (05:30→18:48)
[2020-08-09] MEDS: InsuLIN REG 1unit/0.01ml Soln (100units/ml) SC SCH ×3 (05:31→17:39)
[2020-08-09] MEDS: ALBUTEROL SULF HFA 90MCG INH 200DOSE IN SCH ×3 (08:05→22:54)
[2020-08-09 08:58] VITALS: BP 115/64
[2020-08-09] MEDS: ZINC SULFATE 220mg CAP or TAB PO SCH (10:00)
[2020-08-09] MEDS: APIXABAN 5 MG TAB PO SCH ×2 (10:00→22:58)
[2020-08-09] MEDS: POTASSIUM EFFERVESENT TAB 25 MEQ PO SCH ×2 (10:00→22:59)
[2020-08-09] MEDS: FAMOTIDINE (10MG/ML) 2ML VL IV SCH ×2 (10:58→22:58)
[2020-08-09] MEDS: SODIUM CHLOR 0.9% PF (SALINE LOCK) 10ML VIAL/SYR IV SCH ×2 (10:58→22:58)
[2020-08-09 12:09] VITALS: BP 111/62
[2020-08-09 16:16] VITALS: BP 115/58
[2020-08-09] MEDS: VANCOMYCIN 1GM/250ML 250 ML IV SCH (19:59)
[2020-08-09 22:00] VITALS: BP 119/69
[2020-08-10] MEDS: ACCU-CHEK COMFORT CURVE STRIP VI SCH ×4 (00:10→17:10)
[2020-08-10] MEDS: InsuLIN REG 1unit/0.01ml Soln (100units/ml) SC SCH ×4 (00:31→17:10)
[2020-08-10] MEDS: PIPERACILLIN-TAZOB 3.375GM 100 ML IV SCH ×3 (04:33→21:02)
[2020-08-10 05:00] VITALS: BP 122/68
[2020-08-10] MEDS: FUROSEMIDE 40 MG/4 ML VIAL IV SCH ×2 (06:19→18:00)
[2020-08-10 09:00] VITALS: BP 129/82
[2020-08-10] MEDS: APIXABAN 5 MG TAB PO SCH ×2 (10:06→21:53)
[2020-08-10] MEDS: SODIUM CHLOR 0.9% PF (SALINE LOCK) 10ML VIAL/SYR IV SCH ×2 (10:06→21:53)
[2020-08-10] MEDS: ZINC SULFATE 220mg CAP or TAB PO SCH (10:06)
[2020-08-10] MEDS: FAMOTIDINE (10MG/ML) 2ML VL IV SCH ×2 (10:06→21:53)
[2020-08-10] MEDS: POTASSIUM EFFERVESENT TAB 25 MEQ PO SCH ×2 (10:07→21:53)
[2020-08-10 13:00] VITALS: BP 113/68
[2020-08-10 16:42] VITALS: BP 114/58
[2020-08-10 22:00] VITALS: BP 104/65
[2020-08-10] MEDS: ALBUTEROL SULF HFA 90MCG INH 200DOSE IN SCH (22:15)
[2020-08-11] MEDS: VANCOMYCIN 1GM/250ML 250 ML IV SCH ×2 (01:00→11:04)
[2020-08-11] MEDS: PIPERACILLIN-TAZOB 3.375GM 100 ML IV SCH ×3 (04:03→19:59)
[2020-08-11 05:00] VITALS: BP 123/63
[2020-08-11] MEDS: FUROSEMIDE 40 MG/4 ML VIAL IV SCH ×2 (05:33→18:24)
[2020-08-11] MEDS: InsuLIN REG 1unit/0.01ml Soln (100units/ml) SC SCH ×5 (06:00→23:47)
[2020-08-11] MEDS: ACCU-CHEK COMFORT CURVE STRIP VI SCH ×5 (06:29→23:47)
[2020-08-11] MEDS: ALBUTEROL SULF HFA 90MCG INH 200DOSE IN SCH ×3 (07:55→21:41)
[2020-08-11 09:00] VITALS: BP 124/61
[2020-08-11 09:38] LABS: Basophils # (auto) 0 10 ^3/uL (0-0.2); Basophils % (auto) 0.4 % (0.0-2.0); Eosinophils # (auto) 0.2 10 ^3/uL (0-0.8); Eosinophils % (auto) 2.8 % (0.0-7.0); Hematocrit 30.2 % (41.0-53.0); Hemoglobin 10.2 g/dL (13.5-17.5); Lymphocytes # (auto) 0.7 10 ^3/uL (0.4-5.4); Lymphocytes % (auto) 9.1 % (10.0-50.0); Mean Corpuscular Hemoglobin 31.8 pg (28.0-32.0); Mean Corpuscular Hgb Conc. 33.9 g/dL (32.0-36.0); Mean Corpuscular Volume 93.7 fL (80.0-100.0); Monocytes # (auto) 0.4 10 ^3/uL (0-1.3); Monocytes % (auto) 4.9 % (0.0-12.0); Neutrophils # (auto) 6.5 10 ^3/uL (1.6-8.6); Neutrophils % (auto) 82.8 % (37.0-80.0); Nucleated Red Blood Cells % 0.2 %; Platelet Count (auto) 211 10^3/uL (140-450); Red Blood Cells 3.22 10^6/uL (4.5-5.90); Red Cell Distribution Width 16.8 % (11.8-14.3); White Blood Cell 7.8 10^3/uL (4.4-10.8)
[2020-08-11 10:05] LABS: Albumin 1.7 g/dL (3.4-5.0); Calcium 7.9 mg/dL (8.5-10.1); Magnesium 1.8 mg/dL (1.6-2.6)
[2020-08-11 10:09] LABS: BUN/Creatinine Ratio 10.9; Bilirubin, Total 1.2 mg/dL (0.2-1.0); Phosphorus 2.5 mg/dL (2.5-4.90); Total Protein 5.9 g/dL (6.4-8.2)
[2020-08-11 10:10] LABS: Potassium 2.9 mmol/L (3.5-5.1)
[2020-08-11] MEDS: ZINC SULFATE 220mg CAP or TAB PO SCH (10:12)
[2020-08-11] MEDS: APIXABAN 5 MG TAB PO SCH ×2 (10:12→21:28)
[2020-08-11] MEDS: FAMOTIDINE (10MG/ML) 2ML VL IV SCH ×2 (10:12→21:28)
[2020-08-11] MEDS: SODIUM CHLOR 0.9% PF (SALINE LOCK) 10ML VIAL/SYR IV SCH ×2 (10:12→21:29)
[2020-08-11] MEDS: POTASSIUM EFFERVESENT TAB 25 MEQ PO SCH ×2 (10:12→21:28)
[2020-08-11 13:00] VITALS: BP 113/65
[2020-08-11 16:48] VITALS: BP 119/64
[2020-08-11] MEDS: ACETAMINOPHEN 325 MG TAB PO PRN (21:39)
[2020-08-11 22:00] VITALS: BP 98/58
[2020-08-12] MEDS: PIPERACILLIN-TAZOB 3.375GM 100 ML IV SCH ×3 (03:37→19:47)
[2020-08-12 05:00] VITALS: BP 118/64
[2020-08-12] MEDS: FUROSEMIDE 40 MG/4 ML VIAL IV SCH ×3 (05:54→18:27)
[2020-08-12] MEDS: InsuLIN REG 1unit/0.01ml Soln (100units/ml) SC SCH ×4 (06:00→23:45)
[2020-08-12] MEDS: ACCU-CHEK COMFORT CURVE STRIP VI SCH ×4 (06:02→23:46)
[2020-08-12 09:00] VITALS: BP 116/59
[2020-08-12] MEDS: ZINC SULFATE 220mg CAP or TAB PO SCH (11:07)
[2020-08-12] MEDS: FAMOTIDINE (10MG/ML) 2ML VL IV SCH ×2 (11:07→20:59)
[2020-08-12] MEDS: APIXABAN 5 MG TAB PO SCH ×2 (11:07→21:00)
[2020-08-12] MEDS: POTASSIUM EFFERVESENT TAB 25 MEQ PO SCH (11:08)
[2020-08-12] MEDS: SODIUM CHLOR 0.9% PF (SALINE LOCK) 10ML VIAL/SYR IV SCH ×2 (11:15→21:00)
[2020-08-12] MEDS: ALBUTEROL SULF HFA 90MCG INH 200DOSE IN SCH ×3 (11:36→22:49)
[2020-08-12 12:34] VITALS: BP 113/63
[2020-08-12 13:11] LABS: Anion Gap 8 (5-15); BUN/Creatinine Ratio 10.9; Blood Urea Nitrogen 15 mg/dL (7-18); Calcium 7.4 mg/dL (8.5-10.1); Carbon Dioxide 28 mmol/L (21-32); Chloride 96 mmol/L (98-107); GFR African American 65 mL/min; GFR Non-African American 54 mL/min; Glucose 120 mg/dL (74-106); Sodium 132 mmol/L (136-145)
[2020-08-12 13:18] LABS: Potassium 2.8 mmol/L (3.5-5.1)
[2020-08-12] MEDS ORDERED: POTASSIUM CHL 20 Meq TABLET PO ONE (15:15)
[2020-08-12] MEDS: POTASSIUM CHL 20MEQ/100ML 100 ML IV SCH ×2 (16:57→18:31)
[2020-08-12 17:00] VITALS: BP 116/60
[2020-08-12] MEDS: POTASSIUM CHL 20 Meq TABLET PO SCH (21:00)
[2020-08-12 22:32] VITALS: BP 115/59
[2020-08-12] MEDS: VANCOMYCIN 1GM/250ML 250 ML IV SCH (22:54)
[2020-08-13] MEDS: PIPERACILLIN-TAZOB 3.375GM 100 ML IV SCH ×2 (03:44→12:00)
[2020-08-13 04:28] VITALS: BP 115/59
[2020-08-13 05:03] VITALS: BP 112/56
[2020-08-13] MEDS: FUROSEMIDE 40 MG/4 ML VIAL IV SCH ×2 (05:51→17:15)
[2020-08-13] MEDS: ACCU-CHEK COMFORT CURVE STRIP VI SCH ×4 (05:52→23:40)
[2020-08-13] MEDS: InsuLIN REG 1unit/0.01ml Soln (100units/ml) SC SCH ×4 (05:52→23:40)
[2020-08-13 07:14] LABS: BUN/Creatinine Ratio 10.6; Calcium 7.7 mg/dL (8.5-10.1); Potassium 3.2 mmol/L (3.5-5.1)
[2020-08-13] MEDS: ALBUTEROL SULF HFA 90MCG INH 200DOSE IN SCH ×3 (07:19→22:05)
[2020-08-13 09:06] VITALS: BP 97/62
[2020-08-13] MEDS: POTASSIUM CHL 20 Meq TABLET PO SCH ×2 (09:06→21:50)
[2020-08-13] MEDS: SODIUM CHLOR 0.9% PF (SALINE LOCK) 10ML VIAL/SYR IV SCH ×2 (09:06→21:49)
[2020-08-13] MEDS: ZINC SULFATE 220mg CAP or TAB PO SCH (09:07)
[2020-08-13] MEDS: APIXABAN 5 MG TAB PO SCH ×2 (09:07→21:50)
[2020-08-13] MEDS: FAMOTIDINE (10MG/ML) 2ML VL IV SCH ×2 (09:07→21:49)
[2020-08-13 13:14] VITALS: BP 110/74
[2020-08-13 17:01] VITALS: BP 92/56
[2020-08-13 22:00] VITALS: BP 119/68
[2020-08-14 05:00] VITALS: BP 104/60
[2020-08-14] MEDS: FUROSEMIDE 40 MG/4 ML VIAL IV SCH ×2 (05:18→17:35)
[2020-08-14] MEDS: InsuLIN REG 1unit/0.01ml Soln (100units/ml) SC SCH ×3 (05:19→17:31)
[2020-08-14] MEDS: ACCU-CHEK COMFORT CURVE STRIP VI SCH ×3 (05:19→17:30)
[2020-08-14] MEDS: ALBUTEROL SULF HFA 90MCG INH 200DOSE IN SCH ×3 (07:29→22:31)
[2020-08-14 08:56] VITALS: BP 113/66
[2020-08-14] MEDS: POTASSIUM CHL 20 Meq TABLET PO SCH ×3 (09:23→22:33)
[2020-08-14] MEDS: SODIUM CHLOR 0.9% PF (SALINE LOCK) 10ML VIAL/SYR IV SCH ×2 (09:24→22:32)
[2020-08-14] MEDS: APIXABAN 5 MG TAB PO SCH ×2 (09:24→22:33)
[2020-08-14] MEDS: FAMOTIDINE (10MG/ML) 2ML VL IV SCH ×2 (09:24→22:32)
[2020-08-14] MEDS: ZINC SULFATE 220mg CAP or TAB PO SCH (09:24)
[2020-08-14 12:18] VITALS: BP 124/54
[2020-08-14] MEDS: traMADol HCL 50 MG TAB PO PRN (12:36)
[2020-08-14 17:00] VITALS: BP 103/59
[2020-08-14 20:00] VITALS: BP 101/70
[2020-08-15 05:38] VITALS: BP 93/61
[2020-08-15] MEDS: FUROSEMIDE 40 MG/4 ML VIAL IV SCH ×2 (05:45→17:20)
[2020-08-15] MEDS: InsuLIN REG 1unit/0.01ml Soln (100units/ml) SC SCH ×4 (06:00→17:21)
[2020-08-15] MEDS: ACCU-CHEK COMFORT CURVE STRIP VI SCH ×4 (06:00→17:21)
[2020-08-15] MEDS: ALBUTEROL SULF HFA 90MCG INH 200DOSE IN SCH ×3 (06:00→22:01)
[2020-08-15 07:56] LABS: Potassium 3.9 mmol/L (3.5-5.1)
[2020-08-15 09:00] VITALS: BP_SYST 103; BP_SYST 143; BP_DIAS 65; BP_DIAS 84
[2020-08-15] MEDS: FAMOTIDINE (10MG/ML) 2ML VL IV SCH ×2 (09:51→21:02)
[2020-08-15] MEDS: SODIUM CHLOR 0.9% PF (SALINE LOCK) 10ML VIAL/SYR IV SCH ×2 (09:51→23:48)
[2020-08-15] MEDS: ZINC SULFATE 220mg CAP or TAB PO SCH (09:52)
[2020-08-15] MEDS: POTASSIUM CHL 20 Meq TABLET PO SCH ×3 (09:52→21:02)
[2020-08-15] MEDS: APIXABAN 5 MG TAB PO SCH ×2 (09:52→21:02)
[2020-08-15 13:00] VITALS: BP 97/67
[2020-08-15 16:53] VITALS: BP 113/64
[2020-08-15] MEDS: ACETAMINOPHEN 325 MG TAB PO PRN (21:01)
[2020-08-15 22:00] VITALS: BP 91/70
[2020-08-16 02:33] VITALS: BP 91/70
[2020-08-16 05:04] VITALS: BP 106/58
[2020-08-16] MEDS: FUROSEMIDE 40 MG/4 ML VIAL IV SCH ×2 (05:15→18:39)
[2020-08-16] MEDS: InsuLIN REG 1unit/0.01ml Soln (100units/ml) SC SCH ×4 (05:51→17:40)
[2020-08-16] MEDS: ACCU-CHEK COMFORT CURVE STRIP VI SCH ×4 (05:51→17:40)
[2020-08-16] MEDS: ALBUTEROL SULF HFA 90MCG INH 200DOSE IN SCH ×3 (06:47→21:55)
[2020-08-16 09:00] VITALS: BP 103/60
[2020-08-16] MEDS: SODIUM CHLOR 0.9% PF (SALINE LOCK) 10ML VIAL/SYR IV SCH ×2 (09:45→22:15)
[2020-08-16] MEDS: POTASSIUM CHL 20 Meq TABLET PO SCH ×3 (10:00→22:15)
[2020-08-16] MEDS: ZINC SULFATE 220mg CAP or TAB PO SCH (10:41)
[2020-08-16] MEDS: FAMOTIDINE (10MG/ML) 2ML VL IV SCH ×2 (10:41→22:15)
[2020-08-16] MEDS: APIXABAN 5 MG TAB PO SCH ×2 (10:41→22:15)
[2020-08-16 13:00] VITALS: BP 89/58
[2020-08-16 16:41] VITALS: BP 117/60
[2020-08-16 21:57] VITALS: BP 117/68
[2020-08-17] MEDS: ACCU-CHEK COMFORT CURVE STRIP VI SCH ×4 (00:16→22:08)
[2020-08-17 05:00] VITALS: BP 115/64
[2020-08-17] MEDS: InsuLIN REG 1unit/0.01ml Soln (100units/ml) SC SCH ×4 (05:14→22:00)
[2020-08-17] MEDS: ALBUTEROL SULF HFA 90MCG INH 200DOSE IN SCH ×3 (06:16→22:23)
[2020-08-17] MEDS: FUROSEMIDE 40 MG/4 ML VIAL IV SCH ×2 (06:20→17:51)
[2020-08-17 08:00] VITALS: BP 118/63
[2020-08-17] MEDS: POTASSIUM CHL 20 Meq TABLET PO SCH ×3 (10:00→22:08)
[2020-08-17] MEDS: FAMOTIDINE (10MG/ML) 2ML VL IV SCH ×2 (10:02→22:07)
[2020-08-17] MEDS: SODIUM CHLOR 0.9% PF (SALINE LOCK) 10ML VIAL/SYR IV SCH ×2 (10:02→22:07)
[2020-08-17] MEDS: ZINC SULFATE 220mg CAP or TAB PO SCH (10:02)
[2020-08-17] MEDS: APIXABAN 5 MG TAB PO SCH ×2 (10:02→22:07)
[2020-08-17 12:00] VITALS: BP 98/62
[2020-08-17] MEDS ORDERED: ACCU-CHEK COMFORT CURVE STRIP VI SCH (12:30)
[2020-08-17 17:00] VITALS: BP 99/52
[2020-08-17 21:55] VITALS: BP 111/59
[2020-08-17] MEDS: ACETAMINOPHEN 325 MG TAB PO PRN (22:09)
[2020-08-18 05:00] VITALS: BP 118/54
[2020-08-18] MEDS: FUROSEMIDE 40 MG/4 ML VIAL IV SCH ×2 (06:14→17:26)
[2020-08-18] MEDS: ALBUTEROL SULF HFA 90MCG INH 200DOSE IN SCH ×3 (06:42→20:56)
[2020-08-18 08:00] VITALS: BP 113/64
[2020-08-18] MEDS: SODIUM CHLOR 0.9% PF (SALINE LOCK) 10ML VIAL/SYR IV SCH ×2 (09:43→22:29)
[2020-08-18] MEDS: POTASSIUM CHL 20 Meq TABLET PO SCH ×2 (09:43→22:30)
[2020-08-18] MEDS: FAMOTIDINE (10MG/ML) 2ML VL IV SCH ×2 (09:43→22:29)
[2020-08-18] MEDS: APIXABAN 5 MG TAB PO SCH ×2 (09:43→22:30)
[2020-08-18] MEDS: ACCU-CHEK COMFORT CURVE STRIP VI SCH ×2 (09:58→22:00)
[2020-08-18] MEDS: InsuLIN REG 1unit/0.01ml Soln (100units/ml) SC SCH ×2 (09:58→22:00)
[2020-08-18 12:00] VITALS: BP 107/63
[2020-08-18 16:49] VITALS: BP 107/57
[2020-08-18 22:00] VITALS: BP 107/63
[2020-08-18 22:01] VITALS: BP 107/57
[2020-08-19 05:00] VITALS: BP 124/65
[2020-08-19] MEDS: FUROSEMIDE 40 MG/4 ML VIAL IV SCH ×2 (06:08→18:01)
[2020-08-19] MEDS: ALBUTEROL SULF HFA 90MCG INH 200DOSE IN SCH ×3 (06:23→22:06)
[2020-08-19 08:00] VITALS: BP 125/85
[2020-08-19] MEDS: APIXABAN 5 MG TAB PO SCH ×2 (09:38→21:49)
[2020-08-19] MEDS: FAMOTIDINE (10MG/ML) 2ML VL IV SCH ×2 (09:38→21:50)
[2020-08-19] MEDS: POTASSIUM CHL 20 Meq TABLET PO SCH ×2 (09:39→21:49)
[2020-08-19] MEDS: SODIUM CHLOR 0.9% PF (SALINE LOCK) 10ML VIAL/SYR IV SCH ×2 (09:39→21:49)
[2020-08-19] MEDS: InsuLIN REG 1unit/0.01ml Soln (100units/ml) SC SCH ×2 (09:39→21:50)
[2020-08-19] MEDS: ACCU-CHEK COMFORT CURVE STRIP VI SCH ×2 (09:39→21:50)
[2020-08-19 12:00] VITALS: BP 102/59
[2020-08-19 16:49] VITALS: BP 119/59
[2020-08-19 21:57] VITALS: BP 116/60
[2020-08-20 05:00] VITALS: BP 116/58
[2020-08-20] MEDS: ALBUTEROL SULF HFA 90MCG INH 200DOSE IN SCH ×3 (06:06→22:00)
[2020-08-20] MEDS: FUROSEMIDE 40 MG/4 ML VIAL IV SCH ×2 (06:22→18:04)
[2020-08-20 08:12] VITALS: BP 104/62
[2020-08-20] MEDS: SODIUM CHLOR 0.9% PF (SALINE LOCK) 10ML VIAL/SYR IV SCH ×2 (09:48→23:52)
[2020-08-20] MEDS: APIXABAN 5 MG TAB PO SCH ×2 (09:48→23:52)
[2020-08-20] MEDS: ACCU-CHEK COMFORT CURVE STRIP VI SCH ×2 (09:48→23:53)
[2020-08-20] MEDS: POTASSIUM CHL 20 Meq TABLET PO SCH ×2 (09:48→23:52)
[2020-08-20] MEDS: InsuLIN REG 1unit/0.01ml Soln (100units/ml) SC SCH ×2 (10:50→22:00)
[2020-08-20 12:47] VITALS: BP 103/66
[2020-08-20] MEDS: ACETAMINOPHEN 325 MG TAB PO PRN (16:21)
[2020-08-20 16:41] VITALS: BP 108/65
[2020-08-20 22:02] VITALS: BP 118/62
[2020-08-21] MEDS: FUROSEMIDE 40 MG/4 ML VIAL IV SCH ×2 (05:29→18:28)
[2020-08-21] MEDS: ALBUTEROL SULF HFA 90MCG INH 200DOSE IN SCH ×3 (06:46→23:23)
[2020-08-21 08:00] VITALS: BP 111/67
[2020-08-21 08:14] VITALS: BP 111/67
[2020-08-21] MEDS: POTASSIUM CHL 20 Meq TABLET PO SCH ×2 (10:12→22:15)
[2020-08-21] MEDS: ACCU-CHEK COMFORT CURVE STRIP VI SCH ×2 (10:12→22:16)
[2020-08-21] MEDS: APIXABAN 5 MG TAB PO SCH ×2 (10:12→22:15)
[2020-08-21] MEDS: SODIUM CHLOR 0.9% PF (SALINE LOCK) 10ML VIAL/SYR IV SCH ×2 (10:12→22:15)
[2020-08-21] MEDS: InsuLIN REG 1unit/0.01ml Soln (100units/ml) SC SCH ×2 (11:26→22:00)
[2020-08-21 12:49] VITALS: BP 105/64
[2020-08-21 16:17] VITALS: BP 106/66
[2020-08-21 17:17] VITALS: BP 106/66
[2020-08-21 22:56] VITALS: BP 105/58
[2020-08-22] MEDS: traMADol HCL 50 MG TAB PO PRN (00:03)
[2020-08-22 05:21] VITALS: BP 113/57
[2020-08-22] MEDS: FUROSEMIDE 40 MG/4 ML VIAL IV SCH ×2 (05:52→18:03)
[2020-08-22] MEDS: ALBUTEROL SULF HFA 90MCG INH 200DOSE IN SCH ×3 (06:26→22:53)
[2020-08-22 09:00] VITALS: BP 114/59
[2020-08-22] MEDS: POTASSIUM CHL 20 Meq TABLET PO SCH ×2 (09:39→22:13)
[2020-08-22] MEDS: APIXABAN 5 MG TAB PO SCH ×2 (09:39→22:13)
[2020-08-22] MEDS: SODIUM CHLOR 0.9% PF (SALINE LOCK) 10ML VIAL/SYR IV SCH ×2 (09:40→22:10)
[2020-08-22] MEDS: ACCU-CHEK COMFORT CURVE STRIP VI SCH ×2 (09:43→22:09)
[2020-08-22] MEDS: InsuLIN REG 1unit/0.01ml Soln (100units/ml) SC SCH ×2 (09:47→22:00)
[2020-08-22 13:00] VITALS: BP 114/62
[2020-08-22 17:00] VITALS: BP 105/58
[2020-08-22 22:00] VITALS: BP 106/57
[2020-08-23 05:00] VITALS: BP 117/56
[2020-08-23] MEDS: FUROSEMIDE 40 MG/4 ML VIAL IV SCH ×2 (05:31→17:54)
[2020-08-23] MEDS: ALBUTEROL SULF HFA 90MCG INH 200DOSE IN SCH ×3 (05:50→22:29)
[2020-08-23 09:00] VITALS: BP 119/62
[2020-08-23] MEDS: SODIUM CHLOR 0.9% PF (SALINE LOCK) 10ML VIAL/SYR IV SCH ×2 (10:44→22:13)
[2020-08-23] MEDS: POTASSIUM CHL 20 Meq TABLET PO SCH ×2 (10:45→22:14)
[2020-08-23] MEDS: APIXABAN 5 MG TAB PO SCH ×2 (10:45→22:14)
[2020-08-23] MEDS: ACCU-CHEK COMFORT CURVE STRIP VI SCH ×2 (10:48→22:15)
[2020-08-23] MEDS: InsuLIN REG 1unit/0.01ml Soln (100units/ml) SC SCH ×2 (10:49→22:00)
[2020-08-23 13:00] VITALS: BP 131/58
[2020-08-23 16:53] VITALS: BP 109/65
[2020-08-23] MEDS: ACETAMINOPHEN 325 MG TAB PO PRN (20:42)
[2020-08-23 22:00] VITALS: BP 116/60
[2020-08-24 05:00] VITALS: BP 115/59
[2020-08-24] MEDS: FUROSEMIDE 40 MG/4 ML VIAL IV SCH ×2 (06:33→17:03)
[2020-08-24] MEDS: ALBUTEROL SULF HFA 90MCG INH 200DOSE IN SCH ×3 (06:41→21:04)
[2020-08-24 09:00] VITALS: BP 112/60
[2020-08-24] MEDS: APIXABAN 5 MG TAB PO SCH ×2 (09:31→22:54)
[2020-08-24] MEDS: SODIUM CHLOR 0.9% PF (SALINE LOCK) 10ML VIAL/SYR IV SCH ×2 (09:31→22:54)
[2020-08-24] MEDS: POTASSIUM CHL 20 Meq TABLET PO SCH ×2 (09:31→22:54)
[2020-08-24] MEDS: ACCU-CHEK COMFORT CURVE STRIP VI SCH ×2 (09:39→22:00)
[2020-08-24] MEDS: InsuLIN REG 1unit/0.01ml Soln (100units/ml) SC SCH ×2 (09:42→22:00)
[2020-08-24 13:00] VITALS: BP 112/60
[2020-08-24 16:43] VITALS: BP 113/60
[2020-08-24] MEDS: Ensure HIGH Protein Chocolate 8oz Bottle PO SCH ×2 (18:02→22:54)
[2020-08-24 18:49] VITALS: BP 113/60
[2020-08-24 22:00] VITALS: BP 116/59
[2020-08-25 05:00] VITALS: BP 113/61
[2020-08-25] MEDS: FUROSEMIDE 40 MG/4 ML VIAL IV SCH ×2 (05:51→17:44)
[2020-08-25] MEDS: Ensure HIGH Protein Chocolate 8oz Bottle PO SCH ×4 (05:51→22:41)
[2020-08-25] MEDS: ALBUTEROL SULF HFA 90MCG INH 200DOSE IN SCH ×3 (06:00→21:40)
[2020-08-25 09:00] VITALS: BP 111/64
[2020-08-25] MEDS: ACCU-CHEK COMFORT CURVE STRIP VI SCH ×2 (09:22→22:00)
[2020-08-25] MEDS: SODIUM CHLOR 0.9% PF (SALINE LOCK) 10ML VIAL/SYR IV SCH ×2 (09:23→22:41)
[2020-08-25] MEDS: POTASSIUM CHL 20 Meq TABLET PO SCH ×2 (09:23→22:40)
[2020-08-25] MEDS: APIXABAN 5 MG TAB PO SCH ×2 (09:23→22:41)
[2020-08-25] MEDS: InsuLIN REG 1unit/0.01ml Soln (100units/ml) SC SCH ×2 (09:37→22:00)
[2020-08-25 12:32] VITALS: BP 105/63
[2020-08-25 17:00] VITALS: BP 116/59
[2020-08-25 21:56] VITALS: BP 108/62
[2020-08-26 05:20] VITALS: BP 115/67
[2020-08-26] MEDS: Ensure HIGH Protein Chocolate 8oz Bottle PO SCH ×4 (06:25→22:48)
[2020-08-26] MEDS: FUROSEMIDE 40 MG/4 ML VIAL IV SCH ×2 (06:26→17:56)
[2020-08-26] MEDS: ALBUTEROL SULF HFA 90MCG INH 200DOSE IN SCH ×3 (06:30→22:15)
[2020-08-26 09:00] VITALS: BP 113/59
[2020-08-26] MEDS: ACCU-CHEK COMFORT CURVE STRIP VI SCH (10:00)
[2020-08-26] MEDS: POTASSIUM CHL 20 Meq TABLET PO SCH ×2 (10:12→22:48)
[2020-08-26] MEDS: APIXABAN 5 MG TAB PO SCH ×2 (10:12→22:47)
[2020-08-26] MEDS: SODIUM CHLOR 0.9% PF (SALINE LOCK) 10ML VIAL/SYR IV SCH ×2 (10:12→22:47)
[2020-08-26] MEDS ORDERED: DEXTROSE (50%) 50ML SYRG IV PRN (10:45)
[2020-08-26] MEDS ORDERED: InsuLIN REG 1unit/0.01ml Soln (100units/ml) SC SCH (12:00)
[2020-08-26 13:00] VITALS: BP 121/65
[2020-08-26] MEDS: InsuLIN REG 1unit/0.01ml Soln (100units/ml) SC SCH (16:52)
[2020-08-26 16:57] VITALS: BP 109/57
[2020-08-26] MEDS ORDERED: ACCU-CHEK COMFORT CURVE STRIP VI SCH ×2 (17:00)
[2020-08-26 22:00] VITALS: BP 108/61
[2020-08-27 05:00] VITALS: BP 112/58
[2020-08-27] MEDS: ALBUTEROL SULF HFA 90MCG INH 200DOSE IN SCH ×3 (06:23→22:44)
[2020-08-27] MEDS: FUROSEMIDE 40 MG/4 ML VIAL IV SCH ×2 (06:25→18:04)
[2020-08-27] MEDS: Ensure HIGH Protein Chocolate 8oz Bottle PO SCH ×4 (06:26→23:24)
[2020-08-27] MEDS: InsuLIN REG 1unit/0.01ml Soln (100units/ml) SC SCH ×2 (07:00→17:00)
[2020-08-27 09:00] VITALS: BP 114/54
[2020-08-27] MEDS: APIXABAN 5 MG TAB PO SCH ×2 (10:56→23:24)
[2020-08-27] MEDS: POTASSIUM CHL 20 Meq TABLET PO SCH ×2 (10:56→23:25)
[2020-08-27] MEDS: SODIUM CHLOR 0.9% PF (SALINE LOCK) 10ML VIAL/SYR IV SCH ×2 (10:57→23:24)
[2020-08-27 12:11] VITALS: BP 112/58
[2020-08-27 13:00] LABS: Hematocrit 26.4 % (41.0-53.0); Hemoglobin 8.8 g/dL (13.5-17.5); Mean Corpuscular Hemoglobin 31.6 pg (28.0-32.0); Mean Corpuscular Hgb Conc. 33.3 g/dL (32.0-36.0); Mean Corpuscular Volume 94.8 fL (80.0-100.0); Platelet Count (auto) 205 10^3/uL (140-450); Red Blood Cells 2.79 10^6/uL (4.5-5.90); Red Cell Distribution Width 18.4 % (11.8-14.3); White Blood Cell 7.9 10^3/uL (4.4-10.8)
[2020-08-27 13:03] LABS: Basophils % (manual) 0 (0.0-2.0); Metamyelocytes % 0
[2020-08-27 13:04] LABS: Blast Cells 0; Promyelocytes % 0; Reactive Lymphocytes 0
[2020-08-27 13:16] LABS: Albumin 2.2 g/dL (3.4-5.0); Calcium 8.6 mg/dL (8.5-10.1); Potassium 3.3 mmol/L (3.5-5.1)
[2020-08-27 13:19] LABS: BUN/Creatinine Ratio 26.1; Bilirubin, Total 0.4 mg/dL (0.2-1.0); Total Protein 6.5 g/dL (6.4-8.2)
[2020-08-27 13:21] LABS: Band Neutrophils % (manual) 3; Eosinophils % (manual) 7 (0-7); Lymphocytes % (manual) 17 (10.0-50.0); Monocytes % (manual) 5 (0-12); Myelocytes % 2
[2020-08-27] MEDS ORDERED: POTASSIUM CHL 20 Meq TABLET PO ONE (15:30)
[2020-08-27 16:23] VITALS: BP 100/53
[2020-08-28 02:30] VITALS: BP 117/57
[2020-08-28 05:32] VITALS: BP 117/69
[2020-08-28] MEDS: FUROSEMIDE 40 MG/4 ML VIAL IV SCH ×2 (06:47→17:31)
[2020-08-28] MEDS: Ensure HIGH Protein Chocolate 8oz Bottle PO SCH ×4 (06:47→22:03)
[2020-08-28] MEDS: InsuLIN REG 1unit/0.01ml Soln (100units/ml) SC SCH ×2 (06:48→17:00)
[2020-08-28 09:00] VITALS: BP 110/61
[2020-08-28] MEDS ORDERED: POTASSIUM CHL 20 Meq TABLET PO ONE (09:00)
[2020-08-28] MEDS: SODIUM CHLOR 0.9% PF (SALINE LOCK) 10ML VIAL/SYR IV SCH ×2 (09:39→22:01)
[2020-08-28] MEDS: APIXABAN 5 MG TAB PO SCH ×2 (09:40→22:02)
[2020-08-28] MEDS: POTASSIUM CHL 20 Meq TABLET PO SCH ×2 (09:40→22:03)
[2020-08-28] MEDS: ALBUTEROL SULF HFA 90MCG INH 200DOSE IN SCH ×3 (12:53→23:06)
[2020-08-28 13:00] VITALS: BP 110/63
[2020-08-28 17:00] VITALS: BP 117/64
[2020-08-28 22:00] VITALS: BP 117/58
[2020-08-28] MEDS: ACETAMINOPHEN 325 MG TAB PO PRN (23:13)
[2020-08-29] MEDS: FUROSEMIDE 40 MG/4 ML VIAL IV SCH ×2 (05:30→16:48)
[2020-08-29] MEDS: InsuLIN REG 1unit/0.01ml Soln (100units/ml) SC SCH ×2 (05:30→16:48)
[2020-08-29] MEDS: Ensure HIGH Protein Chocolate 8oz Bottle PO SCH ×4 (06:00→21:44)
[2020-08-29] MEDS: ALBUTEROL SULF HFA 90MCG INH 200DOSE IN SCH (06:34)
[2020-08-29 08:34] VITALS: BP 122/67
[2020-08-29] MEDS: POTASSIUM CHL 20 Meq TABLET PO SCH ×2 (10:59→21:44)
[2020-08-29] MEDS: APIXABAN 5 MG TAB PO SCH ×2 (10:59→21:44)
[2020-08-29] MEDS: SODIUM CHLOR 0.9% PF (SALINE LOCK) 10ML VIAL/SYR IV SCH ×2 (11:00→21:44)
[2020-08-29 12:37] VITALS: BP 122/70
[2020-08-29] MEDS: ALBUTEROL SULF 2.5 MG/0.5ML(0.5%) NEB SOLN NEB SCH ×2 (14:46→22:43)
[2020-08-29] MEDS ORDERED: PNEUMOCOCCAL VACC POLYS 25 MCG/0.5 ML VIAL IM ONE (16:15)
[2020-08-29 16:31] VITALS: BP 122/66
[2020-08-29 22:00] VITALS: BP 106/62
[2020-08-30 05:00] VITALS: BP 113/66
[2020-08-30] MEDS: FUROSEMIDE 40 MG/4 ML VIAL IV SCH (06:11)
[2020-08-30] MEDS: Ensure HIGH Protein Chocolate 8oz Bottle PO SCH ×2 (06:11→13:21)
[2020-08-30] MEDS: ALBUTEROL SULF 2.5 MG/0.5ML(0.5%) NEB SOLN NEB SCH ×2 (06:13→15:18)
[2020-08-30] MEDS: InsuLIN REG 1unit/0.01ml Soln (100units/ml) SC SCH (06:37)
[2020-08-30 09:00] VITALS: BP 109/58
[2020-08-30] MEDS: SODIUM CHLOR 0.9% PF (SALINE LOCK) 10ML VIAL/SYR IV SCH (10:23)
[2020-08-30] MEDS: APIXABAN 5 MG TAB PO SCH (10:24)
[2020-08-30] MEDS: POTASSIUM CHL 20 Meq TABLET PO SCH (10:24)
[2020-08-30 13:00] VITALS: BP 111/72
[2020-08-30] MEDS ORDERED: INSREGI SC (13:48)
[2020-08-30] MEDS ORDERED: APIX5TAB PO (13:48)
[2020-08-30] MEDS ORDERED: ALB5IS NEB (13:48)
[2020-08-30] MEDS ORDERED: POTA-220 PO (13:48)
[2020-08-30] MEDS ORDERED: FUR40I IV (13:48)
[2020-08-30] MEDS ORDERED: NUTR-559 PO (13:48)
== END 2020-08-30 18:00 | DRG 870 ==
LOC: ER 06:09 → EEVIPCON 06:09 → OVERFLOW 06:10 → ICU WEST 06-26 08:10 → TELE-EAST 07-11 15:27 → TELE-CENTR 08-15 23:25 → CENTRAL 08-18 04:47 → WEST WING 08-29 04:01
PROVIDERS: ADMIT Internal Medicine; ATTEND Internal Medicine
PROC: 5A1955Z Respiratory Ventilation, Greater than 96 Consecutive Hours (ICD-10-PCS; principal; 2020-06-25)
PROC: 0BH17EZ Insertion of Endotracheal Airway into Trachea, Via Natural or Artificial Opening (ICD-10-PCS; 2020-06-25)
PROC: 02HV33Z Insertion of Infusion Device into Superior Vena Cava, Percutaneous Approach (ICD-10-PCS; 2020-06-26)
PROC: B548ZZA Ultrasonography of Superior Vena Cava, Guidance (ICD-10-PCS; 2020-06-26)
PROC: XW033E5 Introduction of Remdesivir Anti-infective into Peripheral Vein, Percutaneous Approach, New Technology Group 5 (ICD-10-PCS; 2020-06-27)
PROC: 0B9B8ZZ Drainage of Left Lower Lobe Bronchus, Via Natural or Artificial Opening Endoscopic (ICD-10-PCS; 2020-07-03)
PROC: 0B968ZZ Drainage of Right Lower Lobe Bronchus, Via Natural or Artificial Opening Endoscopic (ICD-10-PCS; 2020-07-03)
PROC: 02HV33Z Insertion of Infusion Device into Superior Vena Cava, Percutaneous Approach (ICD-10-PCS; 2020-08-05)
DX: A41.89 Other specified sepsis (principal); J12.89 Other viral pneumonia; J96.01 Acute respiratory failure with hypoxia; R65.21 Severe sepsis with septic shock; U07.1 COVID-19; J44.1 Chronic obstructive pulmonary disease with (acute) exacerbation; K92.2 Gastrointestinal hemorrhage, unspecified; G93.40 Encephalopathy, unspecified; J44.0 Chronic obstructive pulmonary disease with (acute) lower respiratory infection; Z16.19 Resistance to other specified beta lactam antibiotics; E87.4 Mixed disorder of acid-base balance; E87.3 Alkalosis; E66.01 Morbid (severe) obesity due to excess calories; N40.0 Benign prostatic hyperplasia without lower urinary tract symptoms; Z74.01 Bed confinement status; Z79.01 Long term (current) use of anticoagulants; Z80.6 Family history of leukemia; Z82.49 Family history of ischemic heart disease and other diseases of the circulatory system; Z83.3 Family history of diabetes mellitus; Z95.1 Presence of aortocoronary bypass graft; Z28.21 Immunization not carried out because of patient refusal; E87.6 Hypokalemia; Z68.35 Body mass index [BMI] 35.0-35.9, adult
CPT/HCPCS: 31500; 31645; 36415; 36556; 36569; 36600; 51702; 70450; 71045; 74018; 80048; 80053; 80202; 81001; 82565; 82728; 82805; 82962; 83735; 83880; 84100; 84484; 85007; 85025; 85027; 85379; 85610; 85730; 86141; 87040; 87070; 87077; 87081; 87186; 87205; 87426; 92507; 92610; 93005; 94002; 94003; 94640; 96365; 96366; 96375; 97110; 97116; 97163; 97530; 99291; G0378; J0171; J0330; J0696; J1815; J1956; J2185; J2250; J2543; J2704; J3480; J3490; J7060